=== PATIENT | male | born 1985 | race Caucasian/White ===

== ENCOUNTER → 2018-06-07 08:06 | Outpatient (CLI) | payer BC, SELFPAY ==
--- NOTE | 2018-06-07 | MR_ITS ---
MR lumbar spine wo con, MR 3-d myelogram/MRCP HISTORY: Low back pain, right leg pain X1wk back went out, RT leg pain. No trauma. LBP ITS.REASON: back pain ORDERING PHYSICIAN: Julian Soria MD PATIENT AGE: 33 years Comparison: X-RAY 05/28/18 TECHNIQUE: Standard multiplanar multiecho sequences are performed without contrast. 3-D MIP and myelographic images are also rendered and reviewed FINDINGS: Spinal cord ends at the L1 level. There is mild upper lumbar curvature convex right. L1-L2, L2-L3, and L3-L4 have an unremarkable appearance. L4-5: Normal bulging disc slightly eccentric towards the left lung with mild facet and ligamentum flavum hypertrophy. L5-S1: Mild facet hypertrophic change. No significant foraminal or lateral recess narrowing. No disc herniation or canal stenosis. IMPRESSION: Minimal bulging disc slightly eccentric towards the left at L4-L5. Mild facet and ligamentous hypertrophy at L4-5 and L5-S1. No disc herniation, canal stenosis or other significant anomalies
== END ==
PROVIDERS: Family Provider Emergency Medicine; PCP Emergency Medicine; Visit Provider Emergency Medicine
DX: M54.16 Radiculopathy, lumbar region (principal)
CPT/HCPCS: 72148; 76376

== ENCOUNTER → 2018-07-02 15:34 | Outpatient (POV) | payer BC, SELFPAY ==
[2018-07-02 15:49] VITALS: BP 148/89; PULSE 87; RESP 18; O2SAT 98
--- NOTE | 2018-07-02 16:26 | HMH.PMCON ---
Assessment and Plan (1) Bulging disc Current visit: Yes Status: Chronic Category: Medical (2) Degenerative disc disease Current visit: Yes Status: Chronic Qualifiers: Spinal region: lumbar Qualified Code(s): M51.36 - Other intervertebral disc degeneration, lumbar region Category: Medical (3) Lumbar radiculopathy Current visit: No Status: Chronic Category: Medical Code(s): M54.16 - Radiculopathy, lumbar region - Assessment and plan all Dx Assessment and Plan for all problems:: We will plan an L4-L5 lumbar epidural steroid injection for the patient. I believe that it would be beneficial for him given his symptomology. We will also start him on Celebrex 200 mg 1 p.o. daily. We will follow-up with the patient after his injection. He is not on any anticoagulation. Patient is continuing to do home stretching therapy. This note was dictated using voice recognition software and may contain errors or omissions HPI - Data of Consult Consult date: 07/02/18 Requesting Physician: Licha Reynoso APRN Primary Care Provider: Julian Soria MD Family Provider: Julian Soria MD - Consult Narrative Reason for consult: Back pain History of present illness: Mr. Yates is a 33 year old male who presents today for consultation in regards to his low back pain and right leg pain. Patient was recently moving a refrigerator when he felt pain in his back going down his leg. Patient states his pain is increased since then. He states that sitting for long periods of time makes it much worse while resting makes it better. Patient has had minimal relief with massage therapy. Patient rates his pain a 5 out of 10 today. Patient does have a recent MRI showing a disc bulge along with some facet hypertrophy. Patient has tried [id number] anti-inflammatories. CC: Licha Reynoso APRN [facility] History I have reviewed the patient's past medical history: Yes Medical History: Reports:: Asthma, Hypertension, MRSA Denies:: Cancer, Diabetes Mellitus Type 1, Diabetes Mellitus Type 2 Other Surgeries: Yes: No Previous Surgery Amputation: No Fractures: Yes (left ankle, tib/fib) - *Social History Smoking Status: Never smoker Alcohol Intake: never Alcohol Intake Frequency:: holidays/special occasions only Substance Use Type: denies use Occupational Status: employed Housing: house Household Members: spouse, children - Psychiatric History Expresses thoughts of harming self/others: None Suicide Plan Description: No Plan *Family Hx:: Heart Attack, Cancer, Hypertension, Kidney Disease Review of Systems - Review of Systems ROS General: no recent weight change, no fever, no sleep disturbances Respiratory: no cough, no shortness of air, no recurring pulmonary infections Cardiovascular/Peripheral Vascular: No chest pain, No palpitations, no edema, no shortness of breath. Gastrointestinal: no incontinence, normal bowel movements reported Genitourinary: no incontinence Musculoskeletal: Back pain, right leg pain Psychiatric: normal mood/ affect Neurological: [denies weakness in extremities], [denies balance issues] Meds Allergies Allergy/AdvReac Type Severity Reaction Status Date / Time clindamycin Allergy Mild Rash Verified 06/06/18 09:09 mupirocin [From Bactroban] Allergy Mild Rash Verified 06/06/18 08:33 morphine [MORPHINE] Allergy Unknown Verified 06/06/18 08:33 sulfamethoxazole Allergy Unknown Verified 06/06/18 08:33 [From BACTRIM] trimethoprim [From BACTRIM] Allergy Unknown Verified 06/06/18 08:33 Objective Vital signs: Pulse Resp BP Pulse Ox 87 18 148/89 98 07/02/18 15:49 07/02/18 15:49 07/02/18 15:49 07/02/18 15:49 Narrative: Physical Exam General: Alert and oriented x3, no acute distress, pleasant and cooperative, [on room air] Lungs: Resps E/U, Symmetrical chest expansion, Eyes: PERRL Musculoskeletal: Flexion and extension
--- NOTE | 2018-07-02 16:29 | P.CONS_ITS ---
Assessment and Plan (1) Bulging disc Current visit: Yes Status: Chronic Category: Medical (2) Degenerative disc disease Current visit: Yes Status: Chronic Qualifiers: Spinal region: lumbar Qualified Code(s): M51.36 - Other intervertebral disc degeneration, lumbar region Category: Medical (3) Lumbar radiculopathy Current visit: No Status: Chronic Category: Medical Code(s): M54.16 - Radiculopathy, lumbar region - Assessment and plan all Dx Assessment and Plan for all problems:: We will plan an L4-L5 lumbar epidural steroid injection for the patient. I believe that it would be beneficial for him given his symptomology. We will also start him on Celebrex 200 mg 1 p.o. daily. We will follow-up with the patient after his injection. He is not on any anticoagulation. Patient is continuing to do home stretching therapy. This note was dictated using voice recognition software and may contain errors or omissions HPI - Data of Consult Consult date: 07/02/18 Requesting Physician: Licha Reynoso APRN Primary Care Provider: Julian Soria MD Family Provider: Julian Soria MD - Consult Narrative Reason for consult: Back pain History of present illness: Mr. Yates is a 33 year old male who presents today for consultation in regards to his low back pain and right leg pain. Patient was recently moving a refrigerator when he felt pain in his back going down his leg. Patient states his pain is increased since then. He states that sitting for long periods of time makes it much worse while resting makes it better. Patient has had minimal relief with massage therapy. Patient rates his pain a 5 out of 10 today. Patient does have a recent MRI showing a disc bulge along with some facet hypertrophy. Patient has tried [id number] anti-inflammatories. CC: Licha Reynoso APRN [facility] History I have reviewed the patient's past medical history: Yes Medical History: Reports:: Asthma, Hypertension, MRSA Denies:: Cancer, Diabetes Mellitus Type 1, Diabetes Mellitus Type 2 Other Surgeries: Yes: No Previous Surgery Amputation: No Fractures: Yes (left ankle, tib/fib) - *Social History Smoking Status: Never smoker Alcohol Intake: never Alcohol Intake Frequency:: holidays/special occasions only Substance Use Type: denies use Occupational Status: employed Housing: house Household Members: spouse, children - Psychiatric History Expresses thoughts of harming self/others: None Suicide Plan Description: No Plan *Family Hx:: Heart Attack, Cancer, Hypertension, Kidney Disease Review of Systems - Review of Systems ROS General: no recent weight change, no fever, no sleep disturbances Respiratory: no cough, no shortness of air, no recurring pulmonary infections Cardiovascular/Peripheral Vascular: No chest pain, No palpitations, no edema, no shortness of breath. Gastrointestinal: no incontinence, normal bowel movements reported Genitourinary: no incontinence Musculoskeletal: Back pain, right leg pain Psychiatric: normal mood/ affect Neurological: [denies weakness in extremities], [denies balance issues] Meds Allergies Allergy/AdvReac Type Severity Reaction Status Date / Time clindamycin Allergy Mild Rash Verified 06/06/18 09:09 mupirocin [From Bactroban] Allergy Mild Rash Verified 06/06/18 08:33 morphine [MORPHINE] Allergy Unknown Verified 06/06/18 08:33 sulfamethoxazole Allerg
== END ==
PROVIDERS: Family Provider Emergency Medicine; PCP Emergency Medicine; Visit Provider Clinical Nurse Specialist Family Health
DX: M51.16 Intervertebral disc disorders with radiculopathy, lumbar region (principal)
CPT/HCPCS: 99202

== ENCOUNTER → 2019-07-15 17:25 | Outpatient (CLI) | payer BC, SELFPAY ==
--- NOTE | 2019-07-15 17:41 | XR_ITS ---
PROCEDURE: XR LUMBAR SPINE MIN 4V CLINICAL INDICATION: ACUTE RIGHT SIDED LOW BACK PAIN WITH RIGHT SIDED SCIATICA COMPARISON: SPLUMBLM XR lumbar spine 2-3V from 05/28/2018 FINDINGS: There is minimal thoracolumbar curvature convex right. There is normal alignment. No fracture or dislocation. There is mild sclerosis of the right SI joint. IMPRESSION: No acute finding with no significant change from 05/28/2018 Dictated by: Shamar Rose MD 07/15/2019 20:32 Electronically signed by Shamar Rose MD in [place] 07/15/2019 20:32
== END ==
PROVIDERS: PCP Internal Medicine Adolescent Medicine; Visit Provider Internal Medicine Adolescent Medicine
DX: M54.41 Lumbago with sciatica, right side (principal); W19.XXXD Unspecified fall, subsequent encounter
CPT/HCPCS: 72110

== ENCOUNTER → 2019-07-26 15:48 | Outpatient (CLI) | payer BC, SELFPAY ==
--- NOTE | 2019-07-26 15:51 | MR_ITS ---
PROCEDURE: MR LUMBAR SPINE WO CON CLINICAL INDICATION: ACUTE RIGHT-SIDED LOW BACK PAIN W/ RIGHT-SIDED SCIATICA COMPARISON: SPLUMBWO MR lumbar spine wo con from 06/07/2018 TECHNIQUE: Standard multiplanar multiecho sequences are performed without contrast. 3-D MIP and myelographic images are also rendered and reviewed FINDINGS: Alignment, vertebral body heights and signal from the osseous marrow elements are normal. L4-5 level shows moderate loss of disc space height. The remainder of the disc space heights are normal. L4-5 shows a mild to moderate right posterior extrusion of the nucleus pulposis which extends towards the superior L5 right lateral recess and causes moderate right ventral thecal sac deformity. The fragment is approximately 7.5 millimeters in AP diameter. This partially obscures the descending right L5 nerve root in the right lateral recess. The remainder of the disc levels are normal without bulges or herniation. Nerve root in the foraminal areas are normal. Conus is normal. Paraspinal areas are unremarkable. There is mild curvature, convex towards the right in the upper lower lumbar area. Posterior elements are intact. IMPRESSION: L4-5 right-sided disc herniation of the extrusion type as described causing right lateral recess. Upper lumbar mild dextroscoliosis. Dictated by: Arie Bronson 07/26/2019 17:04 Electronically signed by Arie Bronson in [place] 07/26/2019 17:04
== END ==
LOC: RAD 15:48
PROVIDERS: PCP Internal Medicine Adolescent Medicine; Visit Provider Internal Medicine Adolescent Medicine
DX: M54.41 Lumbago with sciatica, right side (principal)
CPT/HCPCS: 72148; 76376

== ENCOUNTER → 2019-11-06 16:17 | Outpatient (CLI) | payer BC, SELFPAY | PROVIDERS: Visit Provider Internal Medicine Adolescent Medicine | DX: J20.9 Acute bronchitis, unspecified (principal) | CPT/HCPCS: 87070; 87205 ==

== ENCOUNTER → 2020-05-22 12:22 | Outpatient (CLI) | payer BC, OTHER, SELFPAY ==
[2020-05-22 13:20] LABS: Basophils % 0.6 % (0.1-2.0); Eosinophils # 0.1 K/mm3 (0.0-0.4); Eosinophils % 1.3 % (0.1-12.0); Hematocrit 45.2 % (42.0-52.0); Hemoglobin 15.3 g/dL (14.1-18.0); Lymphocytes # 1.5 K/mm3 (0.7-4.5); Lymphocytes % 25.6 % (10-50); Mean Corpuscular Hemoglobin 29.3 pg (27.0-31.2); Mean Corpuscular Volume 86.4 fl (80-94); Mean Platelet Volume 9.3 fl (7.4-10.4); Monocytes # 0.4 K/mm3 (0.1-1.0); Monocytes % 6.1 % (1.7-9.3); Neutrophils # 3.9 K/mm3 (1.8-7.8); Neutrophils % 66.2 % (37.0-80.0); Platelet Count 203 K/mm3 (142-424); Red Blood Count 5.23 M/mm3 (4.60-6.20); Red Cell Distribution Width 12.9 % (11.5-17.5); White Blood Count 5.9 K/mm3 (4.8-10.8)
[2020-05-22 13:50] LABS: Chloride 101 mmol/L (98-107); Potassium 4.6 mmoL/L (3.5-5.1); Sodium 140 mmol/L (136-145)
[2020-05-22 13:52] LABS: Blood Urea Nitrogen 19 mg/dl (9-20)
[2020-05-22 13:53] LABS: Alanine Aminotransferase 40 U/L (12-78); Albumin Level 4.9 g/dl (3.5-5.0); Albumin/Globulin Ratio 1.8 (1.1-1.8); Alkaline Phosphatase 40 U/L (38-126); Anion Gap 16.6 mEq/L (5-15); Aspartate Amino Transferase 32 U/L (17-59); Carbon Dioxide 27 mmol/L (22.0-30.0); Cholesterol 206 mg/dl (140-200); Estimated Glomerular Filt Rate 85 ml/min (>60); GFR (African American) 103 ML/MIN (>60); Globulin 2.8 g/dL (1.3-3.2); Glucose 81 mg/dl (74-100); Total Protein,Serum 7.7 g/dl (6.3-8.2); Triglycerides 88 mg/dl (30-150); VLDL Cholesterol 18 mg/dL (0-40)
[2020-05-22 13:54] LABS: Chol/HDL Ratio 4.2 (1-3.5); HDL Cholesterol 49 mg/dl (40-60)
[2020-05-22 14:05] LABS: Direct LDL Cholesterol 131.49 mg/dL (100-129)
[2020-05-22 14:24] LABS: Thyroid Stimulating Hormone 2.38 uIU/mL (0.465-4.68)
[2020-05-22 18:08] LABS: Bilirubin,Total 0.7 mg/dl (0.2-1.3)
[2020-05-23 19:24] LABS: Vitamin B12 546 pg/mL (232-1245)
== END ==
PROVIDERS: Visit Provider Nurse Practitioner Family
DX: Z00.00 Encounter for general adult medical examination without abnormal findings (principal); I10 Essential (primary) hypertension; R53.83 Other fatigue; Z68.33 Body mass index [BMI] 33.0-33.9, adult
CPT/HCPCS: 36415; 80053; 80061; 82306; 82607; 84443; 85025

== ENCOUNTER → 2020-07-06 14:15 | Outpatient (CLI) | payer BC, OTHER, SELFPAY | PROVIDERS: PCP Nurse Practitioner Family; Visit Provider Nurse Practitioner Family | DX: G47.00 Insomnia, unspecified (principal) | CPT/HCPCS: G0399 ==

== ENCOUNTER 2021-02-07 09:48 | Emergency (ER) | payer BC, OTHER, SELFPAY ==
[2021-02-07 09:50] VITALS: BP 136/87; PULSE 82; RESP 20; TEMP 36.8; O2SAT 98; BMI 34.4
--- NOTE | 2021-02-07 10:11 | HMH.EDUTC ---
[facility] Disposition Clinical Impression: Bronchitis Sinusitis Qualifiers: Sinusitis location: unspecified location Chronicity: unspecified Qualified Code(s): J32.9 - Chronic sinusitis, unspecified Disposition: Home, Self-Care Condition on Discharge: Good Instructions: Sinusitis, DI for Sinusitis, DI for Acute Bronchitis Additional Instructions: ? Start antibiotic today. Be sure to complete entire prescription even if feeling better ? Monitor temp. Tylenol every 4 hours as needed and / or ibuprofen every 6 hours as needed ( As long as your primary care physician has told you that it ok to take both. For fever/aches/pains ER if no less than 101 despite Tylenol or Motrin ? Humidifier/vaporizer or hot steamy shower ? Inhaler every 4-6 hours as needed like we discussed. If unsure how to use it, ask pharmacist to demonstrate how. Should help open airways and improve cough, wheezing, and shortness of breath ? Mucinex during the day for your cough and cough suppressant only at night. Be sure to drink lots of water. Insurance may not cover a prescriptions for mucinex. Might be cheaper to get 400mg tablets and take 2 tablet in the morning, mid-day and evening with lots of water. if you can take it *Start steroid today. Helps with inflammation therefore, cough and wheezing. Follow directions on the package. Reviewed side effects. Patient reports taking them before. Follow up IMMEDIATELY for new or worsening of symptoms OR no noticeable improvement over the next 48-72 hours. 911 immediately for any life threatening symptoms such as chest pain or difficulty breathing Prescriptions: Albuterol Sulfate [Proventil-HFA 90mcg/puff Inh] 1 - 2 puffs IH Q4HP PRN #1 inh PRN Reason: Shortness Of Breath Transmission Status: Received by [id number] predniSONE [Prednisone 20mg Tab] 20 mg PO BID #10 tab Transmission Status: Received by [facility] Azithromycin [Z-Jarod 250mg Tab] 250 mg PO DIRECTED #6 tab Transmission Status: Received by [id number] Referrals: David Edgar MD [Primary Care Provider] - Time of Disposition: 10:23 Medical Decision Making - Ed Inquiry Pt receiving controlled substance: No Ed was queried for this patient: No Vital Signs: 02/07/21 09:50 02/07/21 10:31 Temperature 98.3 F 98.3 F Temperature Source Oral Pulse Rate 82 Pulse Rate [Right Brachial] 82 Respiratory Rate 20 20 Blood Pressure 136/87 Blood Pressure [Right Arm] 136/87 Blood Pressure Mean [Right Arm] 103 Blood Pressure Source [Right Arm] Automatic Cuff Blood Pressure Position [Right Arm] Sitting 02 Sat by Pulse Oximetry 98 Oxygen Delivery Method Room Air Medical Decision Narrative: Patient state that he has taken azithromycin and prednisone in the past without complications or reactions [facility] HPI - General Stated complaint: chest cold, sore throat Time Seen by Provider: 02/07/21 10:11 Mode of Arrival: Ambulatory Source of Information: Patient Limitations: No Limitations Description of Symptoms (Recalled from Triage Doc. by RN): PATIENT C/O CONGESTION, SOA, AND PRODUCTIVE COUGH SINCE MONDAY HEENT Symptoms (Recalled from RN notes): No Resp Symptoms (Recalled from RN notes): Yes Skin Symptoms (Recalled from RN notes): No MS Symptoms (Recalled from RN notes): No Functional Status (Recalled from RN notes): WNL - History of Present Illness Provider Complaint: Patient states that he has been having sinus pressure and sinus congestion for well over a week State that he now feels like it is trying to move into his chest and he can feel it draining in the back of his throat and his throat is feeling scratchy States that at times he is able to cough it up - Related Data Home Medications Medication Instructions Recorded Confirmed Escitalopram Oxalate [Lexapro] 20 mg PO DAILY 02/07/21 02/07/21 Omeprazole [Omeprazole 40mg 40 mg PO DAILY 02/07/21 02/07/21 Capsule] Previous Rx's
[2021-02-07 10:31] VITALS: BP 136/87; PULSE 82; RESP 20; TEMP 36.8; O2SAT 98
== END 2021-02-07 11:00 | disposition home or self-care (01) ==
PROVIDERS: Emergency Provider Nurse Practitioner; PCP Internal Medicine Adolescent Medicine
DX: J20.9 Acute bronchitis, unspecified (principal); J32.9 Chronic sinusitis, unspecified; I10 Essential (primary) hypertension; Z79.899 Other long term (current) drug therapy; Z88.1 Allergy status to other antibiotic agents; Z88.2 Allergy status to sulfonamides; Z88.5 Allergy status to narcotic agent
CPT/HCPCS: 96372; 99202; G0463

== ENCOUNTER 2021-07-16 19:19 | Emergency (ER) | payer OTHER, SELFPAY ==
[2021-07-16 19:20] VITALS: BP 138/99; PULSE 89; RESP 18; TEMP 36.9; O2SAT 97; BMI 34.4
--- NOTE | 2021-07-16 19:40 | XR_ITS ---
PROCEDURE INFORMATION: Exam: XR Left Hand Exam date and time: 07/16/2021 7:40 PM Age: 36 years old Clinical indication: Injury or trauma; Other: Fernandes hog blade fell on top of left hand; Laceration; Patient HX: Bushhog blade fell on hand TECHNIQUE: Imaging protocol: XR Left hand. Views: 3 or more views. COMPARISON: No relevant prior studies available. FINDINGS: Bones/joints: No fracture. No malalignment. Soft tissues: Normal. IMPRESSION: No acute findings.
--- NOTE | 2021-07-16 20:11 | XR_ITS ---
PROCEDURE INFORMATION: Exam: XR Left Wrist Exam date and time: 07/16/2021 8:11 PM Age: 36 years old Clinical indication: Pain and injury or trauma; Other: Fernandes hog blade fell on hand/wrist left; Blunt trauma (contusions or hematomas) and laceration TECHNIQUE: Imaging protocol: XR Left wrist. Views: 3 or more views. COMPARISON: CR XR HAND LT MIN 3V 07/16/2021 7:44 PM FINDINGS: Bones/joints: No fracture. No malalignment. Soft tissues: Normal. IMPRESSION: No acute findings. If there is high or persistent clinical concern, CT is offered.
--- NOTE | 2021-07-16 20:11 | HMH.EDUTC ---
[facility] [place] Disposition Clinical Impression: Crushing injury of right hand Qualifiers: Encounter type: initial encounter Qualified Code(s): S67.21XA - Crushing injury of right hand, initial encounter Disposition: Home, Self-Care Condition on Discharge: Good Instructions: DI for Crush Injury Additional Instructions: Rest the extremity, apply ice for 15 minutes as tolerated three or four times per day, Wear the codi wrap for compression, Elevate the extremity as tolerated while you are resting. Take ibuprofen for pain. I sent in a prescription to your pharmacy. Follow up with Dr. Mast (orthopedics). I put in a referral but you need to call his office and schedule an appointment. Follow up with your regular doctor. GO TO THE ER FOR ANY WORSENING SYMPTOMS Prescriptions: Ibuprofen [Ibuprofen 800mg Tablet] 800 mg PO Q8HP PRN #30 tab PRN Reason: Moderate Pain Transmission Status: Received by [id number] Referrals: David Edgar MD [Primary Care Provider] - Mono Mast MD [Staff Physician] - Time of Disposition: 21:03 Medical Decision Making - Medical Records Medical records reviewed: No: I reviewed the patient's medical records. - Ed Inquiry Pt receiving controlled substance: No Vital Signs: 07/16/21 19:20 07/16/21 21:06 Temperature 98.4 F 98.4 F Temperature Source Oral Pulse Rate 89 Pulse Rate [Right Brachial] 89 Respiratory Rate 18 18 Blood Pressure 138/99 H Blood Pressure [Right Arm] 138/99 H Blood Pressure Mean [Right Arm] 112 Blood Pressure Source [Right Arm] Automatic Cuff Blood Pressure Position [Right Arm] Sitting 02 Sat by Pulse Oximetry 97 Oxygen Delivery Method Room Air [facility] [place] HPI - General Stated complaint: AO 07/19@1845 Blade on Fernandes Hog fell on Left Wrist Time Seen by Provider: 07/16/21 21:02 Mode of Arrival: Ambulatory Source of Information: Patient Limitations: No Limitations Description of Symptoms (Recalled from Triage Doc. 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 SWELLING NOTED TO LEFT HAND HEENT Symptoms (Recalled from RN notes): No Resp Symptoms (Recalled from RN notes): No Skin Symptoms (Recalled from RN notes): No MS Symptoms (Recalled from RN notes): Yes Functional Status (Recalled from RN notes): WNL - History of Present Illness Provider Complaint: He was working on a fernandes hog earlier when it fell on is right wrist and hand. he has had right wrist and hand pain since then. - Related Data Home Medications Medication Instructions Recorded Confirmed Escitalopram Oxalate [Lexapro] 20 mg PO DAILY 02/07/21 02/07/21 Omeprazole [Omeprazole 40mg 40 mg PO DAILY 02/07/21 02/07/21 Capsule] Previous Rx's Medication Instructions Recorded Albuterol Sulfate [Proventil-HFA 1 - 2 puffs IH Q4HP PRN #1 inh 02/07/21 90mcg/puff Inh] Azithromycin [Z-Jarod 250mg Tab] 250 mg PO DIRECTED #6 tab 02/07/21 predniSONE [Prednisone 20mg 20 mg PO BID #10 tab 02/07/21 Tab] Ibuprofen [Ibuprofen 800mg 800 mg PO Q8HP PRN #30 tab 07/16/21 Tablet] Allergies Allergy/AdvReac Type Severity Reaction Status Date / Time clindamycin Allergy Mild Rash Verified 01/11/19 14:20 mupirocin [From Bactroban] Allergy Mild Rash Verified 01/11/19 14:20 morphine [MORPHINE] Allergy Unknown Verified 01/11/19 14:20 sulfamethoxazole Allergy Unknown Verified 01/11/19 14:20 [From BACTRIM] trimethoprim [From BACTRIM] Allergy Unknown Verified 01/11/19 14:20 - Worker's Comp Is this a Worker's Comp case?: No [facility] History - Hepatitis A Screen Drug use history?: No High risk sexual behaviors?: No History of sexually transmitted infection?: No Currently employed?: No Childcare worker?: No Do you have indoor plumbing?: Yes Do you have electricity?: Yes Attestation statement:: This patient has been screened for Hepatitis A risk factors. I have reviewed the patient's past medical history: Yes
[2021-07-16 21:06] VITALS: BP 138/99; PULSE 89; RESP 18; TEMP 36.9; O2SAT 97
== END 2021-07-16 21:11 | disposition home or self-care (01) ==
PROVIDERS: Emergency Provider Nurse Practitioner Family; PCP Internal Medicine Adolescent Medicine
DX: S67.21XA Crushing injury of right hand, initial encounter (principal); W30.89XA Contact with other specified agricultural machinery, initial encounter; Y92.73 Farm field as the place of occurrence of the external cause; I10 Essential (primary) hypertension; Z88.2 Allergy status to sulfonamides; Z88.5 Allergy status to narcotic agent
CPT/HCPCS: 29125; 73110; 73130; 99202; G0463

== ENCOUNTER → 2021-09-02 09:09 | Outpatient (CLI) | payer OTHER, SELFPAY ==
[2021-09-02 09:48] LABS: Basophils # 0.1 K/mm3 (0-0.2); Basophils % 0.9 % (0.1-2.0); Eosinophils # 0.1 K/mm3 (0.0-0.4); Eosinophils % 2.2 % (0.1-12.0); Hematocrit 41.1 % (42.0-52.0); Hemoglobin 13.6 g/dL (14.1-18.0); Lymphocytes # 1.5 K/mm3 (0.7-4.5); Lymphocytes % 28.7 % (10-50); Mean Corpuscular HGB Conc 33.1 g/dL (31.8-35.4); Mean Corpuscular Hemoglobin 29.4 pg (27.0-31.2); Mean Corpuscular Volume 88.8 fl (80-94); Mean Platelet Volume 9.6 fl (7.4-10.4); Monocytes # 0.3 K/mm3 (0.1-1.0); Monocytes % 5.7 % (1.7-9.3); Neutrophils # 3.3 K/mm3 (1.8-7.8); Neutrophils % 62.5 % (37.0-80.0); Platelet Count 206 K/mm3 (142-424); Red Blood Count 4.63 M/mm3 (4.60-6.20); Red Cell Distribution Width 14.1 % (11.5-17.5); White Blood Count 5.2 K/mm3 (4.8-10.8)
[2021-09-02 10:37] LABS: Alanine Aminotransferase 48 U/L (12-78); Albumin Level 4.2 g/dl (3.5-5.0); Albumin/Globulin Ratio 1.6 (1.1-1.8); Alkaline Phosphatase 45 U/L (38-126); Anion Gap 11.3 mEq/L (5-15); Aspartate Amino Transferase 36 U/L (17-59); Bilirubin,Total 0.6 mg/dl (0.2-1.3); Blood Urea Nitrogen 14 mg/dl (9-20); Calcium 9.1 mg/dl (8.4-10.2); Carbon Dioxide 28 mmol/L (22.0-30.0); Chloride 106 mmol/L (98-107); Chol/HDL Ratio 4.9 (1-3.5); Cholesterol 190 mg/dl (140-200); Estimated Glomerular Filt Rate 95 ml/min (>60); GFR (African American) 116 ML/MIN (>60); Globulin 2.6 g/dL (1.3-3.2); Glucose 87 mg/dl (74-100); HDL Cholesterol 39 mg/dl (40-60); Potassium 4.3 mmoL/L (3.5-5.1); Sodium 141 mmol/L (136-145); Total Protein,Serum 6.8 g/dl (6.3-8.2); Triglycerides 99 mg/dl (30-150); VLDL Cholesterol 20 mg/dL (0-40)
[2021-09-02 10:48] LABS: Direct LDL Cholesterol 124.96 mg/dL (100-129)
[2021-09-02 11:08] LABS: Thyroid Stimulating Hormone 2.57 uIU/mL (0.465-4.68)
[2021-09-02 11:26] LABS: Vitamin B12 489 pg/mL (239-931)
[2021-09-02 12:27] LABS: Hemoglobin A1C 5.1 % (4.0-6.0)
== END ==
PROVIDERS: Visit Provider Internal Medicine Adolescent Medicine
DX: Z00.00 Encounter for general adult medical examination without abnormal findings (principal); M79.2 Neuralgia and neuritis, unspecified; I10 Essential (primary) hypertension
CPT/HCPCS: 36415; 80053; 80061; 82607; 83036; 83735; 84443; 85025

== ENCOUNTER → 2021-09-30 09:52 | Outpatient (CLI) | payer OTHER, SELFPAY ==
--- NOTE | 2021-09-30 09:55 | FL_ITS ---
PROCEDURE: FL UPPER GI W AIR CLINICAL INDICATION: ESOPHAGEAL DYSPHAGIA COMPARISON: No exams were available for comparison TECHNIQUE: FLUOROSCOPY TIME : 1.07 minutes FINDINGS: The esophagus, stomach, and duodenum have an unremarkable appearance.There is no evidence of hiatal hernia. No ulcer or mass evident. No mucosal abnormalities apparent. There is normal peristalsis. The duodenal C-loop is nondisplaced. IMPRESSION: Dictated by: Shamar Rose MD 09/30/2021 16:47 Shamar Rose MD in [place] 09/30/2021 16:47
== END ==
PROVIDERS: PCP Internal Medicine Adolescent Medicine; Visit Provider Internal Medicine Adolescent Medicine
DX: R13.19 Other dysphagia (principal)
CPT/HCPCS: 74246

== ENCOUNTER 2022-01-09 23:06 | Emergency (ER) | payer OTHER, SELFPAY ==
[2022-01-09 23:07] VITALS: BP 154/90; PULSE 97; RESP 22; TEMP 36.8; O2SAT 98; BMI 34.4
[2022-01-09 23:13] VITALS: BMI 34.4
--- NOTE | 2022-01-09 23:14 | XR_ITS ---
PROCEDURE INFORMATION: Exam: XR Chest Exam date and time: 01/09/2022 11:23 PM Age: 36 years old Clinical indication: Cough and shortness of breath; Additional info: SOA cough TECHNIQUE: Imaging protocol: XR of the chest. Views: 2 views. COMPARISON: RF FL UPPER GI W AIR 09/30/2021 10:01 AM FINDINGS: Lungs: Mild underinflation. No definite consolidation. Pleural spaces: No significant pleural effusion. No pneumothorax. Heart/Mediastinum: No cardiomegaly. Bones/joints: No displaced fracture. Soft tissues: Unremarkable. IMPRESSION: No definite acute cardiopulmonary disease. If symptoms persist, consider CT for further evaluation.
--- NOTE | 2022-01-09 23:16 | ECG_ITS ---
APPROVED REPORT Exam: Resting ECG HR:82 bpm ECG Measurements Heart Rate 82 AXES LA 134 P 32 QRSd 106 QRS 18 QT 344 T 12 QTc 382 Conclusion SINUS RHYTHM NORMAL ECG UNCONFIRMED REPORT Electronically signed by : David Edgar MD 01/11/2022 16:46:49
[2022-01-09 23:30] VITALS: PULSE 84
[2022-01-09 23:40] VITALS: PULSE 82
[2022-01-09 23:46] LABS: Basophils # 0.2 K/mm3 (0-0.2); Basophils % 1.9 % (0.1-2.0); Eosinophils # 0.2 K/mm3 (0.0-0.4); Eosinophils % 2.6 % (0.1-12.0); Hematocrit 44.4 % (42.0-52.0); Hemoglobin 14.4 g/dL (14.1-18.0); Lymphocytes # 2.4 K/mm3 (0.7-4.5); Lymphocytes % 31.1 % (10-50); Mean Corpuscular HGB Conc 32.5 g/dL (31.8-35.4); Mean Corpuscular Hemoglobin 28.9 pg (27.0-31.2); Mean Corpuscular Volume 88.8 fl (80-94); Mean Platelet Volume 9.5 fl (7.4-10.4); Monocytes # 0.5 K/mm3 (0.1-1.0); Monocytes % 5.8 % (1.7-9.3); Neutrophils # 4.5 K/mm3 (1.8-7.8); Neutrophils % 58.5 % (37.0-80.0); Platelet Count 227 K/mm3 (142-424); Red Cell Distribution Width 13.8 % (11.5-17.5); White Blood Count 7.7 K/mm3 (4.8-10.8)
[2022-01-09 23:49] VITALS: PULSE 83; O2SAT 98
[2022-01-09 23:50] LABS: Alanine Aminotransferase 50 U/L (12-78); Albumin Level 4.7 g/dl (3.5-5.0); Albumin/Globulin Ratio 1.5 (1.1-1.8); Alkaline Phosphatase 56 U/L (38-126); Aspartate Amino Transferase 38 U/L (17-59); Bilirubin,Total 0.4 mg/dl (0.2-1.3); Blood Urea Nitrogen 14 mg/dl (9-20); Calcium 9.3 mg/dl (8.4-10.2); Carbon Dioxide 28 mmol/L (22.0-30.0); Chloride 107 mmol/L (98-107); Creatinine Clearance Estimated 143 mL/min (50-200); Estimated Glomerular Filt Rate 76 ml/min (>60); GFR (African American) 92 ML/MIN (>60); Globulin 3.1 g/dL (1.3-3.2); Glucose 90 mg/dl (74-100); Lactic Acid 1.8 mmol/L (0.7-2.1); Sodium 145 mmol/L (136-145); Total Protein,Serum 7.8 g/dl (6.3-8.2)
[2022-01-09 23:55] LABS: C-Reactive Protein 1.9 mg/L (0-4)
[2022-01-10] VITALS: BP 155/89; PULSE 84; O2SAT 97
[2022-01-10 00:01] VITALS: PULSE 81; O2SAT 96
[2022-01-10 00:08] LABS: Procalcitonin 0.101 ng/mL (0.0-2.0)
[2022-01-10 00:10] LABS: Erythrocyte Sedimentation Rate 15 mm/hr (0-15)
[2022-01-10 00:15] VITALS: PULSE 80; O2SAT 98
--- NOTE | 2022-01-10 00:35 | HMH.EDSOB ---
ED Disposition Clinical Impression: Bronchitis Disposition: Home, Self-Care Condition on Discharge: Good Instructions: DI for Acute Bronchitis Additional Instructions: fluids and use meds as directed Prescriptions: Benzonatate [Benzonatate 100mg cap] 100 mg PO QID #20 cap Transmission Status: Pending to [facility] predniSONE [Prednisone 20mg Tab] 20 mg PO BID #10 tab Transmission Status: Pending to [facility] Azithromycin [Zithromax 250mg tab] 250 mg PO DIRECTED #6 tab Transmission Status: Pending to [facility] Referrals: David Edgar MD [Primary Care Provider] - - Critical Care Critical Care Time: No Attestation: On 01/09/22, the high probability of a clinically significant, sudden or life threatening deterioration of the following system(s) required my full and direct attention, intervention and personal management. The time I documented below is in addition to time spent performing reported procedures but includes the following listed in this critical care notation. Medical Decision Making - Medical Records Medical records reviewed: Yes: I reviewed the patient's medical records. - Ed Inquiry Pt receiving controlled substance: No Vital Signs: 01/09/22 23:07 01/09/22 23:30 01/09/22 23:40 Temperature 98.3 F Temperature Source Oral Pulse Rate 84 82 Pulse Rate [Right] 97 H Respiratory Rate 22 Blood Pressure Blood Pressure [Right Arm] 154/90 H Blood Pressure Mean [Right Arm] 111 02 Sat by Pulse Oximetry 98 01/09/22 23:49 01/10/22 00:00 01/10/22 00:01 Temperature Temperature Source Pulse Rate 83 84 81 Pulse Rate [Right] Respiratory Rate Blood Pressure 155/89 H Blood Pressure [Right Arm] Blood Pressure Mean [Right Arm] 02 Sat by Pulse Oximetry 98 97 96 01/10/22 00:15 Temperature Temperature Source Pulse Rate 80 Pulse Rate [Right] Respiratory Rate Blood Pressure Blood Pressure [Right Arm] Blood Pressure Mean [Right Arm] 02 Sat by Pulse Oximetry 98 - Lab Data Lab results reviewed: Yes: I reviewed the patient's lab results. Lab Results 01/09/22 23:30: WBC 7.7, RBC 5.00, Hgb 14.4, Hct 44.4, MCV 88.8, MCH 28.9, MCHC 32.5, RDW 13.8, Plt Count 227, MPV 9.5, Neut % (Auto) 58.5, Lymph % (Auto) 31.1, [place] % (Auto) 5.8, Eos % (Auto) 2.6, Baso % (Auto) 1.9, Neut # (Auto) 4.5, Lymph # (Auto) 2.4, [place] # (Auto) 0.5, Eos # (Auto) 0.2, Baso # (Auto) 0.2, ESR 15 01/09/22 23:30: Sodium 145, Potassium 4.0, Chloride 107, Carbon Dioxide 28, Anion Gap 14.0, BUN 14, Creatinine 1.10, Estimated Creat Clear 143, Estimated GFR 76, Est GFR ( Amer) 92, Glucose 90, Calcium 9.3, Total Bilirubin 0.4, AST 38, ALT 50, Alkaline Phosphatase 56, C-Reactive Protein 1.9, Total Protein 7.8, Albumin 4.7, Globulin 3.1, Albumin/Globulin Ratio 1.5, Procalcitonin 0.101 01/09/22 23:30: Lactate 1.8 Result diagrams: 01/09/22 23:30 01/09/22 23:30 Orders (Tests/Meds): ED MEDICATIONS Generic Name Dose Route Start Last Admin Trade Name Freq PRN Reason Stop Dose Admin Benzonatate 200 mg 01/10/22 01:15 01/10/22 01:16 Benzonatate 100mg Capsule PO 02/09/22 01:14 200 mg ONCE NEHA Administration Lactated Ringer's 1,000 mls @ 999 mls/hr 01/09/22 23:15 01/09/22 23:29 Lactated Ringer's 1000 Ml Bag IV 01/10/22 00:15 999 mls/hr .Q1H1M NEHA Administration Azithromycin 500 mg/ Sodium 250 mls @ 250 mls/hr 01/10/22 01:15 01/10/22 01:16 Chloride IV 01/24/22 01:14 250 mls/hr Q24H NEHA Administration Discontinued Medications Generic Name Dose Route Start Last Admin Trade Name Freq PRN Reason Stop Dose Admin Albuterol/Ipratropium 3 ml 01/09/22 23:15 01/09/22 23:30 Ipratropium/Albuterol 3 Ml Neb IH 01/09/22 23:16 3 ml ONCE ONE Administration Diphenhydramine HCl 50 mg 01/09/22 23:36 01/09/22 23:38 Diphenhydramine 50mg/Ml Vial IV 01/09/22 23:37 50 mg ONCE ONE Administration
[2022-01-10 01:41] VITALS: BP 145/80; PULSE 88; RESP 19; TEMP 36.8; O2SAT 99
== END 2022-01-10 02:00 | disposition home or self-care (01) ==
PROVIDERS: Emergency Provider Emergency Medicine; PCP Internal Medicine Adolescent Medicine
DX: J40 Bronchitis, not specified as acute or chronic (principal); R55 Syncope and collapse; R51.9 Headache, unspecified; I10 Essential (primary) hypertension; Z79.52 Long term (current) use of systemic steroids; Z79.899 Other long term (current) drug therapy; Z88.1 Allergy status to other antibiotic agents; Z88.2 Allergy status to sulfonamides; Z88.3 Allergy status to other anti-infective agents; Z88.5 Allergy status to narcotic agent; Z88.8 Allergy status to other drugs, medicaments and biological substances; Z82.49 Family history of ischemic heart disease and other diseases of the circulatory system; Z80.9 Family history of malignant neoplasm, unspecified; Z84.1 Family history of disorders of kidney and ureter
CPT/HCPCS: 71046; 80053; 83605; 84145; 85025; 85651; 86140; 87040; 93005; 96365; 96367; 96374; 96375; 99285; J0456; J2405

== ENCOUNTER → 2022-08-08 13:46 | Outpatient (CLI) | payer OTHER, SELFPAY ==
--- NOTE | 2022-08-08 13:51 | XR_ITS ---
FINAL REPORT CLINICAL HISTORY: heel pain FINDINGS: LEFT FOOT Three views of the left foot demonstrate no acute fracture or dislocation. The visualized joint spaces are normally aligned. The joint spaces are preserved. There is a plantar calcaneal spur and a posterior calcaneal spur. There are postoperative changes in the medial malleolus and the distal fibula. The soft tissues are unremarkable. IMPRESSION: Calcaneal spurs with no acute bony abnormality. Reviewed, Interpreted and Dictated by Matty Alonso III, MD Transcribed by Lucy Sesay Authenticated and [facility]
--- NOTE | 2022-08-08 13:51 | XR_ITS ---
FINAL REPORT CLINICAL HISTORY: heel pain FINDINGS: RIGHT FOOT Three views of the right foot demonstrate no acute fracture or dislocation. The visualized joint spaces are normally aligned. The joint spaces are preserved. There is a plantar calcaneal spur. The soft tissues are unremarkable. IMPRESSION: Calcaneal spur with no acute bony abnormality. Reviewed, Interpreted and Dictated by Matty Alonso III, MD Transcribed by Lucy Sesay Authenticated and [facility]
== END ==
PROVIDERS: PCP Internal Medicine Adolescent Medicine; Visit Provider Podiatrist
DX: M79.671 Pain in right foot (principal); M79.672 Pain in left foot
CPT/HCPCS: 73630

== ENCOUNTER → 2022-12-08 09:29 | Outpatient (CLI) | payer OTHER, SELFPAY ==
--- NOTE | 2022-12-08 09:32 | XR_ITS ---
FINAL REPORT CLINICAL HISTORY: foot pain COMPARISON: 08/08/2022 FINDINGS: AP, oblique and lateral views of the right foot were obtained. There is no acute fracture or dislocation. The joint spaces are preserved. Soft tissues are normal. IMPRESSION: No acute osseous abnormality of the right foot. Reviewed, Interpreted and Dictated by Etelvina Ivey MD Transcribed by Lucy eSsay Authenticated and . [facility]
--- NOTE | 2022-12-08 09:32 | XR_ITS ---
FINAL REPORT CLINICAL HISTORY: heel pain/injury FINDINGS: Axial and lateral views of the right calcaneus were obtained. There is no prior exam for comparison. There is no acute fracture or other acute osseous abnormality. There is degenerative disease. The soft tissues are unremarkable. IMPRESSION: No acute osseous abnormality of the right calcaneus. Reviewed, Interpreted and Dictated by Etelvina Ivey MD Transcribed by Lucy Sesay Authenticated and [facility]
== END ==
PROVIDERS: PCP Internal Medicine Adolescent Medicine; Visit Provider Podiatrist
DX: M79.671 Pain in right foot (principal)
CPT/HCPCS: 73630; 73650

== ENCOUNTER 2023-06-19 20:45 | Emergency (ER) | payer OTHER, SELFPAY ==
[2023-06-19] VITALS (7 sets, daily range): BP systolic 123–152; BP diastolic 75–106; PULSE 63–82; RESP 16–20; TEMP 36.6; O2SAT 97–99; BMI 34.4
--- NOTE | 2023-06-19 21:25 | HMH.EDGENADL ---
Discharge Plan Disposition Patient Disposition: Home, Self-Care Condition: Good Prescriptions Prescriptions: New ondansetron HCl 4 mg tablet 4 mg PO Q8H PRN (Reason: nausea and vomiting) 5 Days Qty: 30 0RF tamsulosin 0.4 mg capsule 0.4 mg PO DAILY Qty: 14 0RF No Action venlafaxine 75 mg capsule,extended release 24hr 75 mg PO DAILY carvedilol 12.5 mg tablet 12.5 mg PO Q12H Rx Instructions: must administer with a meal/food meloxicam 15 mg tablet 15 mg PO ONCE 30 Days Qty: 30 2RF omeprazole 40 MG capsule,delayed release(DR/EC) 40 mg PO DAILY losartan 100 MG tablet 100 mg PO DAILY Referrals Follow up/Referrals: David Edgar MD [Primary Care Provider] - See instructions Activity Restrictions/Add. Instructions Additional Instructions/Restrictions: Please follow-up with your primary care provider. Please return to the emergency department if you develop any new or worsening symptoms or become concerned for your health. Please take Tylenol and ibuprofen as needed for pain. Please take Zofran as needed for nausea and vomiting. Please take tamsulosin as it may help your kidney stone pass. Please remain hydrated. Your CT scan showed some fatty liver and an enlarged prostate, this should be followed up by your primary care provider. Clinical Impressions Clinical Impression: Hydronephrosis concurrent with and due to calculi of kidney and ureter, Abdominal pain, RLQ, Fatty infiltration of liver, Acute dehydration Diarrhea Qualifiers: Diarrhea type: presumed infectious Qualified Code(s): R19.7 - Diarrhea, unspecified Instructions Patient Instructions: DI for Acute Abdominal Pain Discharge ED Provider: Hi Schwartz General Adult HPI <Hi Schwartz MD - Last Filed: 06/19/23 23:06> General Chief complaint: Abdominal Pain Stated complaint: R lower abd pain Time Seen by Provider: 06/19/23 20:50 Mode of Arrival: Ambulatory Source of Information: Patient Limitations: No Limitations Description of Symptoms (Recalled from ER Triage Doc. by RN): Patient reports he has been feeling bad all day but about an hour ago he started having right lower quadrant pain. Patient states he is unsire if he has ran a fever but reports chills and nausea but no vomiting at this time. History of Present Illness HPI narrative: This is a 38-year-old male with history of hypertension presenting with abdominal pain. Patient states that he has been having diarrhea all day which is nonbloody and bright green. Has not been vomiting or having fevers. Started having right lower quadrant abdominal pain about an hour prior to arrival that starts on his right side and radiates down to his right lower quadrant. No dysuria or hematuria. Denies back pain, flank pain, history of this in the past. Pain is moderate to severe in intensity, unable to get comfortable. Related Data Home Medications Medication Instructions Recorded Confirmed omeprazole 40 mg capsule,delayed 40 mg PO DAILY GERD 02/07/21 06/19/23 release losartan 100 mg tablet 100 mg PO DAILY High blood pressure 01/10/22 01/24/23 carvedilol 12.5 mg tablet 12.5 mg PO Q12H 10/03/22 01/24/23 venlafaxine 75 mg capsule,extended 75 mg PO DAILY 10/03/22 01/24/23 release 24 hr Previous Rx's Medication Instructions Recorded meloxicam 15 mg tablet 15 mg PO ONCE pain 30 days #30 tabs 12/06/22 ondansetron HCl 4 mg tablet 4 mg PO Q8H PRN nausea and 06/19/23 vomiting 5 days #30 tabs tamsulosin 0.4 mg capsule 0.4 mg PO DAILY #14 caps 06/19/23 Allergies Allergy/AdvReac Type Severity Reaction Status Date / Time clindamycin Allergy Mild Rash Verified 01/24/23 15:22 mupirocin [From Bactroban] Allergy Mild Rash Verified 01/24/23 15:22 morphine [MORPHINE] Allergy Unknown Verified 01/24/23 15:22 sulfamethoxazole Allergy Unknown Verified 01/24/23 15:22 [From BACTRIM] trimethoprim [From BACTRIM] Allergy Unknown Verified 01/24/23 15:22
[2023-06-19 21:27] LABS: Basophils # 0.1 K/mm3 (0-0.2); Basophils % 0.8 % (0.1-2.0); Eosinophils # 0.1 K/mm3 (0.0-0.4); Eosinophils % 1.6 % (0.1-12.0); Hematocrit 45.5 % (42.0-52.0); Hemoglobin 14.8 g/dL (14.1-18.0); Lymphocytes # 1.9 K/mm3 (0.7-4.5); Lymphocytes % 24.1 % (10-50); Mean Corpuscular HGB Conc 32.5 g/dL (31.8-35.4); Mean Corpuscular Hemoglobin 28.5 pg (27.0-31.2); Mean Corpuscular Volume 87.8 fl (80-94); Mean Platelet Volume 9.3 fl (7.4-10.4); Monocytes # 0.5 K/mm3 (0.1-1.0); Monocytes % 6.6 % (1.7-9.3); Neutrophils # 5.2 K/mm3 (1.8-7.8); Neutrophils % 66.9 % (37.0-80.0); Platelet Count 244 K/mm3 (142-424); Red Blood Count 5.19 M/mm3 (4.60-6.20); Red Cell Distribution Width 13.6 % (11.5-17.5); White Blood Count 7.7 K/mm3 (4.8-10.8)
[2023-06-19 21:28] LABS: Chloride 104 mmol/L (98-107)
[2023-06-19 21:29] LABS: Sodium 144 mmol/L (136-145)
[2023-06-19 21:31] LABS: Alanine Aminotransferase 47 U/L (12-78); Albumin Level 4.8 g/dl (3.5-5.0); Albumin/Globulin Ratio 1.2 (1.1-1.8); Alkaline Phosphatase 56 U/L (38-126); Aspartate Amino Transferase 36 U/L (17-59); Blood Urea Nitrogen 19 mg/dl (9-20); Calcium 10.4 mg/dl (8.4-10.2); Carbon Dioxide 30 mmol/L (22.0-30.0); Creatinine Clearance Estimated 119 mL/min (50-200); Estimated Glomerular Filt Rate 62 ml/min (>60); GFR (African American) 75 ML/MIN (>60); Glucose 91 mg/dl (74-100); Lipase 45 U/L (23-300); Total Protein,Serum 8.8 g/dl (6.3-8.2)
--- NOTE | 2023-06-19 22:00 | PC.NURSE ---
Rounded on patient no concerns at this time.
--- NOTE | 2023-06-19 22:18 | CT_ITS ---
PROCEDURE INFORMATION: Exam: CT Abdomen And Pelvis With Contrast Exam date and time: 06/19/2023 10:31 PM Age: 38 years old Clinical indication: Abdominal pain; Localized; Right lower quadrant (rlq); Additional info: Rlq pain, stabbing TECHNIQUE: Imaging protocol: Computed tomography of the abdomen and pelvis with contrast. Radiation optimization: All CT scans at this facility use at least one of these dose optimization techniques: automated exposure control; mA and/or kV adjustment per patient size (includes targeted exams where dose is matched to clinical indication); or iterative reconstruction. Contrast material: ISOVUE; Contrast volume: 75 ml; Contrast route: IV; REPORTING DATA: Count of CT and Cardiac NM exams in prior 12 months: This patient has received 0 known CTs and 0 known cardiac nuclear medicine studies in the 12 months prior to the current study. COMPARISON: RF FL UPPER GI W AIR 09/30/2021 10:01 AM FINDINGS: Liver: Moderately fatty liver. Gallbladder and bile ducts: Unremarkable. Pancreas: Unremarkable. Spleen: Splenomegaly, measuring 13.5 cm in craniocaudal axis. Adrenal glands: Unremarkable. Kidneys and ureters: Distal right ureteral stone (2-3 mm) near the ureterovesical junction associated with very mild right hydroureteronephrosis. Delayed right nephrogram compatible with acute obstructive uropathy. No other renal or ureteral stones. Stomach and bowel: Unremarkable. Appendix: Appendix is visualized and is normal. Intraperitoneal space: No free fluid. No pneumoperitoneum. Vasculature: Unremarkable. Lymph nodes: Unremarkable. Urinary bladder: Bladder is decompressed, limiting evaluation. Reproductive: Mildly enlarged prostate, measuring 4.5 cm in transverse axis. Bones/joints: No evidence of acute osseous abnormality. Soft tissues: Unremarkable. IMPRESSION: 1. Distal right ureteral stone (2-3 mm) near the ureterovesical junction associated with very mild right hydroureteronephrosis. 2. Moderately fatty liver. 3. Splenomegaly. 4. Mildly enlarged prostate. Please correlate with PSA.
[2023-06-19 23:19] LABS: Microscopic, Urine URINE MICROSCOPIC (MICROSCOPIC)
[2023-06-19 23:24] LABS: Appearance,Urine CLEAR (Clear); Bilirubin,Urine Negative (Negative); Blood, Urine 2+ (Negative); Color,Urine YELLOW (Yellow); Glucose,Urine (UA) Negative (Negative); Ketones,Urine Negative (Negative); Leukocyte Esterase,Urine Negative (Negative); Nitrate,Urine Negative (Negative); Protein,Urine Negative (Negative); Specific Gravity, Urine 1.015 (1.005-1.030); Urobilinogen,Urine 0.2 EU/dl (0.2)
[2023-06-19 23:41] LABS: RBC,Urine Occasional #/hpf (0-3); Squamous Epithelial Cell,Urine Occasional #/hpf (0-5)
== END 2023-06-19 23:56 | disposition home or self-care (01) ==
PROVIDERS: Emergency Provider Emergency Medicine; PCP Internal Medicine Adolescent Medicine
DX: N13.2 Hydronephrosis with renal and ureteral calculous obstruction (principal); E86.0 Dehydration; K76.0 Fatty (change of) liver, not elsewhere classified
CPT/HCPCS: 74177; 80053; 81001; 83690; 85025; 96361; 96374; 96375; 99285; J0131; Q9967

== ENCOUNTER 2023-06-23 15:46 | Emergency (ER) | payer OTHER, SELFPAY ==
[2023-06-23] VITALS (7 sets, daily range): BP systolic 91–152; BP diastolic 49–95; PULSE 69–85; RESP 17–20; TEMP 36.7–36.8; O2SAT 97–100; BMI 34.4
--- NOTE | 2023-06-23 16:10 | PC.NURSE ---
Dr. Schwartz at [facility] for pt eval
--- NOTE | 2023-06-23 16:21 | HMH.EDGENADL ---
Discharge Plan Disposition Patient Disposition: Home, Self-Care Prescriptions Prescriptions: New ketorolac 10 mg tablet 10 mg PO Q8H PRN (Reason: pain) 5 Days Qty: 15 0RF Rx Instructions: With food and water No Action venlafaxine 75 mg capsule,extended release 24hr 75 mg PO DAILY carvedilol 12.5 mg tablet 12.5 mg PO Q12H Rx Instructions: must administer with a meal/food meloxicam 15 mg tablet 15 mg PO ONCE 30 Days Qty: 30 2RF omeprazole 40 MG capsule,delayed release(DR/EC) 40 mg PO DAILY losartan 100 MG tablet 100 mg PO DAILY ondansetron HCl 4 mg tablet 4 mg PO Q8H PRN (Reason: nausea and vomiting) 5 Days Qty: 30 0RF tamsulosin 0.4 mg capsule 0.4 mg PO DAILY Qty: 14 0RF Referrals Follow up/Referrals: David Edgar MD [Primary Care Provider] - See instructions Activity Restrictions/Add. Instructions Additional Instructions/Restrictions: Call your family doctor to establish care for this visit to the emergency department and schedule follow-up within 48 hours to ensure improvement. If you have any worsening of your condition or any other concerning signs or symptoms, return to the emergency department or your primary care doctor for further evaluation. Use strainer when you urinate and keep stone for further urologic evaluation. Be sure to stay hydrated Clinical Impressions Clinical Impression: Calcium ureterolithiasis Instructions Patient Instructions: DI for Urinary Tract Infection (UTI), DI for Urinary Tract Infection in Children Discharge ED Provider: Hi Schwartz General Adult HPI General Chief complaint: Urogenital-Male Stated complaint: abd pain Time Seen by Provider: 06/23/23 15:50 Mode of Arrival: Ambulatory Source of Information: Patient Limitations: No Limitations Description of Symptoms (Recalled from ER Triage Doc. by RN): Patient reports he was here on Monday and told he has kidney stones. Reports the pain coming back and intense approx 1-2 hours ago. History of Present Illness HPI narrative: 38-year-old male history of recently diagnosed right-sided nephrolithiasis presenting with right flank and right lower quadrant abdominal pain. Patient states this is the same pain he has been having, mild to moderately worse. Having difficulty urinating and urine is dark whenever he does urinate. Does not believe he has passed the stone. Wanted to make sure everything was okay. Denies fevers or chills, nausea or vomiting, but is having moderate in intensity, stabbing right lower quadrant pain rating to his right flank. Related Data Home Medications Medication Instructions Recorded Confirmed omeprazole 40 mg capsule,delayed 40 mg PO DAILY GERD 02/07/21 06/19/23 release losartan 100 mg tablet 100 mg PO DAILY High blood pressure 01/10/22 01/24/23 carvedilol 12.5 mg tablet 12.5 mg PO Q12H 10/03/22 01/24/23 venlafaxine 75 mg capsule,extended 75 mg PO DAILY 10/03/22 01/24/23 release 24 hr Previous Rx's Medication Instructions Recorded meloxicam 15 mg tablet 15 mg PO ONCE pain 30 days #30 tabs 12/06/22 ondansetron HCl 4 mg tablet 4 mg PO Q8H PRN nausea and 06/19/23 vomiting 5 days #30 tabs tamsulosin 0.4 mg capsule 0.4 mg PO DAILY #14 caps 06/19/23 ketorolac 10 mg tablet 10 mg PO Q8H PRN pain 5 days #15 06/23/23 tabs Allergies Allergy/AdvReac Type Severity Reaction Status Date / Time clindamycin Allergy Mild Rash Verified 01/24/23 15:22 mupirocin [From Bactroban] Allergy Mild Rash Verified 01/24/23 15:22 morphine [MORPHINE] Allergy Unknown Verified 01/24/23 15:22 sulfamethoxazole Allergy Unknown Verified 01/24/23 15:22 [From BACTRIM] trimethoprim [From BACTRIM] Allergy Unknown Verified 01/24/23 15:22 PFSH PFS Disclaimer: The information contained in this section may have been updated after the patient was seen, as this information can be updated by other users. Medical History (Reviewed 01/24/23 @ 15:21
[2023-06-23 16:30] LABS: Basophils % 0.4 % (0.1-2.0); Eosinophils # 0.1 K/mm3 (0.0-0.4); Eosinophils % 1.2 % (0.1-12.0); Hematocrit 43.5 % (42.0-52.0); Hemoglobin 14.3 g/dL (14.1-18.0); Lymphocytes # 1.1 K/mm3 (0.7-4.5); Lymphocytes % 12.7 % (10-50); Mean Corpuscular HGB Conc 32.8 g/dL (31.8-35.4); Mean Corpuscular Hemoglobin 29.2 pg (27.0-31.2); Mean Corpuscular Volume 88.8 fl (80-94); Mean Platelet Volume 9.1 fl (7.4-10.4); Monocytes # 0.3 K/mm3 (0.1-1.0); Monocytes % 3.2 % (1.7-9.3); Neutrophils # 6.9 K/mm3 (1.8-7.8); Neutrophils % 82.5 % (37.0-80.0); Platelet Count 196 K/mm3 (142-424); Red Cell Distribution Width 13.5 % (11.5-17.5); White Blood Count 8.4 K/mm3 (4.8-10.8)
[2023-06-23 16:50] LABS: Anion Gap 14.9 mEq/L (5-15); Blood Urea Nitrogen 17 mg/dl (9-20); Calcium 9.6 mg/dl (8.4-10.2); Carbon Dioxide 30 mmol/L (22.0-30.0); Chloride 106 mmol/L (98-107); Creatinine Clearance Estimated 119 mL/min (50-200); Estimated Glomerular Filt Rate 62 ml/min (>60); GFR (African American) 75 ML/MIN (>60); Glucose 96 mg/dl (74-100); Potassium 3.9 mmoL/L (3.5-5.1); Sodium 147 mmol/L (136-145)
--- NOTE | 2023-06-23 16:52 | PC.NURSE ---
Md and myself spoke with parents, parents taken to pt room, pt ok with parents coming in. [facility] staff at [facility]
[2023-06-23 17:05] LABS: Microscopic, Urine URINE MICROSCOPIC (MICROSCOPIC)
[2023-06-23 17:32] LABS: Appearance,Urine Clear (Clear); Bacteria,Urine Trace /lpf; Bilirubin,Urine Negative (Negative); Blood, Urine 3+ (Negative); Color,Urine Yellow (Yellow); Glucose,Urine (UA) Negative (Negative); Ketones,Urine Negative (Negative); Leukocyte Esterase,Urine Negative (Negative); Nitrate,Urine Negative (Negative); Protein,Urine 1+ (Negative); Squamous Epithelial Cell,Urine Occasional #/hpf (0-5); Urobilinogen,Urine 0.2 EU/dl (0.2)
--- NOTE | 2023-06-23 17:38 | PC.NURSE ---
Rounded on pt. No needs voiced at this time.
== END 2023-06-23 18:49 | disposition home or self-care (01) ==
PROVIDERS: Emergency Provider Emergency Medicine; PCP Internal Medicine Adolescent Medicine
DX: N20.1 Calculus of ureter (principal); R10.31 Right lower quadrant pain
CPT/HCPCS: 80048; 81001; 85025; 96361; 96374; 96375; 99284; J0131

== ENCOUNTER 2023-11-03 08:18 | Outpatient (CLI) | payer BC, SELFPAY ==
[2023-11-03 08:43] LABS: Basophils # 0.1 K/mm3 (0-0.2); Basophils % 0.9 % (0.1-2.0); Eosinophils # 0.1 K/mm3 (0.0-0.4); Eosinophils % 1.5 % (0.1-12.0); Hematocrit 41.9 % (42.0-52.0); Hemoglobin 14.3 g/dL (14.1-18.0); Lymphocytes # 1.8 K/mm3 (0.7-4.5); Lymphocytes % 25.9 % (10-50); Mean Corpuscular HGB Conc 34.1 g/dL (31.8-35.4); Mean Corpuscular Hemoglobin 29.4 pg (27.0-31.2); Mean Corpuscular Volume 86.2 fl (80-94); Mean Platelet Volume 9.2 fl (7.4-10.4); Monocytes # 0.5 K/mm3 (0.1-1.0); Monocytes % 6.7 % (1.7-9.3); Neutrophils # 4.4 K/mm3 (1.8-7.8); Neutrophils % 65.1 % (37.0-80.0); Platelet Count 218 K/mm3 (142-424); Red Blood Count 4.86 M/mm3 (4.60-6.20); Red Cell Distribution Width 13.8 % (11.5-17.5); White Blood Count 6.8 K/mm3 (4.8-10.8)
[2023-11-03 09:21] LABS: Hemoglobin A1C 5.1 % (4.0-6.0)
[2023-11-03 09:29] LABS: Chloride 104 mmol/L (98-107); Potassium 4.4 mmoL/L (3.5-5.1); Sodium 140 mmol/L (136-145)
[2023-11-03 09:31] LABS: Blood Urea Nitrogen 19 mg/dl (9-20)
[2023-11-03 09:32] LABS: Alanine Aminotransferase 34 U/L (12-78); Albumin Level 4.2 g/dl (3.5-5.0); Albumin/Globulin Ratio 1.6 (1.1-1.8); Alkaline Phosphatase 43 U/L (38-126); Anion Gap 12.4 mEq/L (5-15); Aspartate Amino Transferase 29 U/L (17-59); Bilirubin,Total 0.6 mg/dl (0.2-1.3); Calcium 9.2 mg/dl (8.4-10.2); Carbon Dioxide 28 mmol/L (22.0-30.0); Cholesterol 181 mg/dl (140-200); Estimated Glomerular Filt Rate 75 ml/min (>60); GFR (African American) 91 ML/MIN (>60); Globulin 2.7 g/dL (1.3-3.2); Glucose 95 mg/dl (74-100); Total Protein,Serum 6.9 g/dl (6.3-8.2); Triglycerides 105 mg/dl (30-150); VLDL Cholesterol 21 mg/dL (0-40)
[2023-11-03 09:33] LABS: HDL Cholesterol 36 mg/dl (40-60)
[2023-11-03 09:44] LABS: Direct LDL Cholesterol 108.67 mg/dL (100-129)
[2023-11-03 10:03] LABS: Thyroid Stimulating Hormone 2.37 uIU/mL (0.465-4.68)
[2023-11-03 10:27] LABS: Prostate Specific Ag Screen 0.5 ng/ml (0.0-4.0)
[2023-11-03 10:46] LABS: Vitamin B12 414 pg/mL (239-931)
== END 2023-11-03 23:59 ==
LOC: LAB 08:21
PROVIDERS: PCP Internal Medicine Adolescent Medicine; Visit Provider Nurse Practitioner Family
DX: I10 Essential (primary) hypertension (principal); E66.9 Obesity, unspecified; Z68.36 Body mass index [BMI] 36.0-36.9, adult; R53.81 Other malaise; N40.1 Benign prostatic hyperplasia with lower urinary tract symptoms; Z79.899 Other long term (current) drug therapy; Z12.5 Encounter for screening for malignant neoplasm of prostate
CPT/HCPCS: 36415; 80053; 80061; 82607; 83036; 84443; 85025; G0103

== ENCOUNTER 2023-11-10 19:26 | Emergency (ER) | payer BC, SELFPAY ==
--- NOTE | 2023-11-10 19:31 | ED_ITS ---
Discharge Plan Disposition Patient Disposition: Home, Self-Care Condition: Good Prescriptions Prescriptions: New promethazine-DM 6.25-15 mg/5 mL syrup 5 ml PO Q6H PRN (Reason: Cough) Qty: 180 0RF benzonatate 200 mg capsule 200 mg PO TID PRN (Reason: cough) Qty: 30 0RF prednisone [prednisone] 20 mg tablet 20 mg PO BID 5 Days Qty: 10 0RF No Action carvedilol 12.5 mg tablet 12.5 mg PO Q12H Rx Instructions: must administer with a meal/food sertraline 50 mg tablet 50 mg PO DAILY Patient Comments: TAKE ONE TABLET BY MOUTH EVERY DAY omeprazole 40 MG capsule,delayed release(DR/EC) 40 mg PO DAILY losartan 100 MG tablet 100 mg PO DAILY tamsulosin 0.4 mg capsule 0.4 mg PO DAILY Qty: 14 0RF Referrals Follow up/Referrals: David Edgar MD [Primary Care Provider] - See instructions Clinical Impressions Clinical Impression: Influenza, Cough Instructions Patient Instructions: DI for Cough -- Adult Discharge ED Provider: Sujey Maynard [facility] General Stated complaint: congestion cough st Time Seen by Provider: 11/10/23 19:38 History of Present Illness Provider Complaint: Patient diagnosed with flu 5 days ago. Still has congestion, cough. Tonight coughed up bloody mucous. Not getting much sleep due to cough. Onset (ago): day(s) (5) Location: chest Associated symptoms: cough Treatments prior to arrival: none Related Data Home Medications Medication Instructions Recorded Confirmed omeprazole 40 mg capsule,delayed 40 mg PO DAILY GERD 02/07/21 11/10/23 release losartan 100 mg tablet 100 mg PO DAILY High blood pressure 01/10/22 11/10/23 carvedilol 12.5 mg tablet 12.5 mg PO Q12H 10/03/22 11/10/23 sertraline 50 mg tablet 50 mg PO DAILY 11/10/23 11/10/23 Previous Rx's Medication Instructions Recorded tamsulosin 0.4 mg capsule 0.4 mg PO DAILY #14 caps 06/19/23 benzonatate 200 mg capsule 200 mg PO TID PRN cough #30 caps 11/10/23 prednisone 20 mg tablet 20 mg PO BID 5 days #10 tabs 11/10/23 promethazine-DM 6.25 mg-15 mg/5 mL 5 ml PO Q6H PRN Cough #180 mL 11/10/23 oral syrup Allergies Allergy/AdvReac Type Severity Reaction Status Date / Time clindamycin Allergy Mild Rash Verified 01/24/23 15:22 mupirocin [From Bactroban] Allergy Mild Rash Verified 01/24/23 15:22 morphine [MORPHINE] Allergy Unknown Verified 01/24/23 15:22 sulfamethoxazole Allergy Unknown Verified 01/24/23 15:22 [From BACTRIM] trimethoprim [From BACTRIM] Allergy Unknown Verified 01/24/23 15:22 [facility] Disclaimer: The information contained in this section may have been updated after the patient was seen, as this information can be updated by other users. Medical History Foot pain, bilateral Social History Smoking Status: Never smoker second hand exposure: No alcohol intake: never substance use type: denies use current occupational status: employed Travel in the last 8 weeks: None household members: spouse and children housing: house ROS Obtained: Yes All systems reviewed & no additional complaints except as documented Constitutional Constitutional: Reports body ache, Reports chills and Reports fever(s) Respiratory Respiratory: Reports chest congestion and Reports cough Physical Exam General General appearance: alert and in no apparent distress Head Head exam: atraumatic and normocephalic Eye Eye exam: Present normal appearance, PERRL and EOMI; Absent scleral icterus, conjunctival redness, conjunctival injection or periorbital swelling ENT ENT exam: Present normal oropharynx, mucous membranes moist and TM's normal bilaterally Neck Neck exam: Present normal inspection, full ROM and trachea midline; Absent lymphadenopathy Chest Chest inspection: Present symmetric chest wall rise Respiratory Respiratory exam: Absent respiratory distress, wheezes, stridor, accessory muscle use or prolonged expiratory phase Cardiovascular Cardiovascular exam: Present regular rate and normal rhythm Abdominal Exam Abdominal exam: Present soft; Absent distention, tenderness, guarding, rebound or rigidity Neurological Exam Neurological exam: Present alert and CN II-XII intact (Grossly); Absent motor sensory deficit Medical Decision Making Ed Inquiry Pt receiving controlled substance: No
[2023-11-10 19:35] VITALS: BP 131/90; PULSE 90; RESP 21; TEMP 37.3; O2SAT 98; BMI 31.9
[2023-11-10 19:42] VITALS: BP 131/90; PULSE 90; RESP 21; TEMP 37.3; O2SAT 98
[2023-11-10] MEDS: methylPREDNISolone ACETATE 80MG/ML VIAL 80 MG IM (19:48)
== END 2023-11-10 20:02 | disposition home or self-care (01) ==
PROVIDERS: Emergency Provider Physician Assistant; PCP Internal Medicine Adolescent Medicine
DX: J10.1 Influenza due to other identified influenza virus with other respiratory manifestations (principal); R05.8 Other specified cough; R09.89 Other specified symptoms and signs involving the circulatory and respiratory systems; R50.9 Fever, unspecified
CPT/HCPCS: 96372; 99212; 99214; G0463; J1040

== ENCOUNTER 2023-12-03 16:04 | Emergency (ER) | payer BC, SELFPAY ==
[2023-12-03 17:05] VITALS: BP 136/89; PULSE 73; RESP 18; TEMP 36.9; O2SAT 97; BMI 36.3
--- NOTE | 2023-12-03 17:24 | EXP.UTC ---
Discharge Plan Disposition Patient Disposition: Home, Self-Care Condition: Good Prescriptions Prescriptions: New prednisone [prednisone] 20 mg tablet 20 mg PO BID 3 Days Qty: 6 0RF amoxicillin [amoxicillin] 875 mg tablet 875 mg PO Q12H Qty: 20 0RF benzonatate [benzonatate] 100 mg capsule 100 mg PO TIDP PRN (Reason: Cough) Qty: 30 0RF No Action carvedilol 12.5 mg tablet 12.5 mg PO Q12H Rx Instructions: must administer with a meal/food sertraline 50 mg tablet 50 mg PO DAILY Patient Comments: TAKE ONE TABLET BY MOUTH EVERY DAY omeprazole 40 MG capsule,delayed release(DR/EC) 40 mg PO DAILY losartan 100 MG tablet 100 mg PO DAILY tamsulosin 0.4 mg capsule 0.4 mg PO DAILY Qty: 14 0RF Referrals Follow up/Referrals: David Edgar MD [Primary Care Provider] - See instructions Activity Restrictions/Add. Instructions Additional Instructions/Restrictions: Drink plenty of fluids. Take tylenol or ibuprofen for pain or fever. Take the medications as directed. Follow up with your regular doctor. GO TO THE ER FOR ANY WORSENING SYMPTOMS Throw your tooth brush away and get a new one. Clinical Impressions Clinical Impression: Strep throat Stand Alone Forms Stand Alone Forms: Work/School Release Instructions Patient Instructions: DI for Strep Throat, Strep Throat Discharge ED Provider: Bradley Harmon [facility] General Stated complaint: sore throat, fever, TSE Time Seen by Provider: 12/03/23 17:24 History of Present Illness Provider Complaint: He states that for the past 1 day he has had worsening sore throat, chills, and malaise. Related Data Home Medications Medication Instructions Recorded Confirmed omeprazole 40 mg capsule,delayed 40 mg PO DAILY GERD 02/07/21 12/03/23 release losartan 100 mg tablet 100 mg PO DAILY High blood pressure 01/10/22 12/03/23 carvedilol 12.5 mg tablet 12.5 mg PO Q12H 10/03/22 12/03/23 sertraline 50 mg tablet 50 mg PO DAILY 11/10/23 12/03/23 Previous Rx's Medication Instructions Recorded tamsulosin 0.4 mg capsule 0.4 mg PO DAILY #14 caps 06/19/23 amoxicillin 875 mg tablet 875 mg PO Q12H #20 tabs 12/03/23 benzonatate 100 mg capsule 100 mg PO TIDP PRN Cough #30 caps 12/03/23 prednisone 20 mg tablet 20 mg PO BID 3 days #6 tabs 12/03/23 Allergies Allergy/AdvReac Type Severity Reaction Status Date / Time clindamycin Allergy Mild Rash Verified 12/03/23 17:35 mupirocin [From Bactroban] Allergy Mild Rash Verified 12/03/23 17:35 morphine [MORPHINE] Allergy Unknown Verified 12/03/23 17:35 sulfamethoxazole Allergy Unknown Verified 12/03/23 17:35 [From BACTRIM] trimethoprim [From BACTRIM] Allergy Unknown Verified 12/03/23 17:35 PFSH PFS Disclaimer: The information contained in this section may have been updated after the patient was seen, as this information can be updated by other users. Medical History Foot pain, bilateral Social History Smoking Status: Never smoker second hand exposure: No alcohol intake: never substance use type: denies use current occupational status: employed Travel in the last 8 weeks: None household members: spouse and children housing: house ROS Obtained: Yes All systems reviewed & no additional complaints except as documented Constitutional Constitutional: Reports chills and Reports fever(s) Eyes Eyes: Denies eye discharge ENT Ears, Nose, Mouth, and Throat: Reports as per HPI Cardiovascular Cardiovascular: Denies chest pain Respiratory Respiratory: Denies chest congestion and Reports cough Gastrointestinal Gastrointestingal: Reports nausea; Denies abdominal pain, constipation, cramping, diarrhea or vomiting Musculoskeletal Musculoskeletal: Denies arthralgias Integumentary/Breasts Skin/Breast: Denies rash Neurologic Neurologic: Denies paresthesias Physical Exam General General appearance: alert and in no apparent distress Head Head exam: atraumatic, normocephalic and normal inspection Eye Eye exam: Present normal appearance, PERRL and EOMI ENT ENT exam: Present mucous membranes moist and normal external ear exam Expanded ENT Exam TM/Canal exam: Bilateral TM: erythema and bulging Nose exam: Absent sinus tenderness Mouth exam: Present normal external inspection; Absent drooling Teeth exam: Present normal inspection Throat exam: Present tonsillar erythema, tonsillomegaly and tonsillar exudate Neck Neck exam: Present normal inspection, full ROM and trachea midline; Absent tenderness, meningismus or lymphadenopathy Chest Chest inspection: Present normal inspection and symmetric chest wall rise; Absent tenderness Respiratory Respiratory exam: Present normal lung sounds bilaterally; Absent respiratory distress, wheezes, stridor or accessory muscle use Cardiovascular Cardiovascular exam: Present regular rate and normal rhythm; Absent systolic murmur or diastolic murmur Abdominal Exam Abdominal exam: Present soft and normal bowel sounds; Absent distention, tenderness, guarding, rebound or rigidity Extremities Exam Extremities exam: Present normal inspection and normal capillary refill; Absent calf tenderness Back Exam Back exam: Present normal inspection and full ROM; Absent tenderness, CVA tenderness (R) or CVA tenderness (L) Neurological Exam Neurological exam: Present alert, oriented X3 and CN II-XII intact Psychiatric Psychiatric exam: Present normal affect and normal mood Skin Skin exam: Present warm, dry, intact and normal color Medical Decision Making Medical Records Medical records reviewed: No I reviewed the patient's medical records. Ed [place] Pt receiving controlled substance: No Lab Data Lab results reviewed: Yes I reviewed the patient's lab results.
[2023-12-03 17:56] LABS: UTC Strep Screen (Rapid) Negative (Negative)
[2023-12-03 18:01] VITALS: BP 136/89; PULSE 73; RESP 18; TEMP 36.9; O2SAT 97
[2023-12-03 18:05] LABS: Influenza A, PCR Not Detected (NotDetected); Influenza B, PCR Not Detected (NotDetected)
[2023-12-03 18:52] LABS: Coronavirus 19, PCR Detected (NotDetected)
== END 2023-12-03 18:05 | disposition home or self-care (01) ==
PROVIDERS: Emergency Provider Nurse Practitioner Family; PCP Internal Medicine Adolescent Medicine
DX: U07.1 COVID-19 (principal); R50.9 Fever, unspecified; R07.0 Pain in throat; R05.9 Cough, unspecified
CPT/HCPCS: 87636; 87880; 99212; 99214; G0463

== ENCOUNTER 2024-11-01 09:05 | Outpatient (CLI) | payer OTHER, SELFPAY ==
[2024-11-01 09:40] LABS: Basophils # 0.1 K/mm3 (0-0.2); Basophils % 0.9 % (0.1-2.0); Eosinophils # 0.1 K/mm3 (0.0-0.4); Eosinophils % 2.1 % (0.1-12.0); Hematocrit 44.2 % (42.0-52.0); Hemoglobin 14.5 g/dL (14.1-18.0); Lymphocytes # 1.4 K/mm3 (0.7-4.5); Lymphocytes % 26.1 % (10-50); Mean Corpuscular HGB Conc 32.8 g/dL (31.8-35.4); Mean Corpuscular Hemoglobin 28.2 pg (27.0-31.2); Mean Platelet Volume 10.9 fl (7.4-10.4); Monocytes # 0.4 K/mm3 (0.1-1.0); Neutrophils # 3.4 K/mm3 (1.8-7.8); Neutrophils % 62.7 % (37.0-80.0); Platelet Count 204 K/mm3 (142-424); Red Blood Count 5.14 M/mm3 (4.60-6.20); White Blood Count 5.4 K/mm3 (4.8-10.8)
[2024-11-01 10:18] LABS: Alanine Aminotransferase 32 U/L (12-78); Albumin Level 4.5 g/dl (3.5-5.0); Albumin/Globulin Ratio 1.8 (1.1-1.8); Alkaline Phosphatase 48 U/L (38-126); Anion Gap 9.4 mEq/L (5-15); Aspartate Amino Transferase 38 U/L (17-59); Blood Urea Nitrogen 18 mg/dl (9-20); Calcium 9.6 mg/dl (8.4-10.2); Carbon Dioxide 30 mmol/L (22.0-30.0); Chloride 102 mmol/L (98-107); Chol/HDL Ratio 10.7 (1-3.5); Cholesterol 257 mg/dl (140-200); Estimated Glomerular Filt Rate 67 ml/min (>60); GFR (African American) 82 ML/MIN (>60); Globulin 2.5 g/dL (1.3-3.2); Glucose 88 mg/dl (74-100); HDL Cholesterol 24 mg/dl (40-60); Hemoglobin A1C 5.2 % (4.0-6.0); Potassium 4.4 mmoL/L (3.5-5.1); Sodium 137 mmol/L (136-145); Triglycerides 286 mg/dl (30-150); VLDL Cholesterol 57 mg/dL (0-40)
[2024-11-01 10:29] LABS: Direct LDL Cholesterol 168.24 mg/dL (100-129)
[2024-11-01 10:34] LABS: 25-OH Vitamin D, Total 32.9 ng/mL (30-100)
[2024-11-01 10:49] LABS: Prostate Specific Ag Screen 0.7 ng/ml (0.0-4.0); Thyroid Stimulating Hormone 1.95 uIU/mL (0.465-4.68)
[2024-11-01 11:08] LABS: Vitamin B12 749 pg/mL (239-931)
[2024-11-02 08:12] LABS: Testosterone,Total 542 ng/dL (264-916)
== END 2024-11-01 23:59 | disposition home or self-care (01) ==
PROVIDERS: PCP Internal Medicine Adolescent Medicine; Visit Provider Nurse Practitioner Family
DX: N40.1 Benign prostatic hyperplasia with lower urinary tract symptoms (principal); R40.0 Somnolence; I10 Essential (primary) hypertension; G47.33 Obstructive sleep apnea (adult) (pediatric); R79.89 Other specified abnormal findings of blood chemistry
CPT/HCPCS: 36415; 80053; 80061; 82306; 82607; 83036; 84403; 84443; 85025; G0103

== ENCOUNTER 2024-11-21 22:09 | Emergency (ER) | payer OTHER, SELFPAY ==
[2024-11-21 22:10] VITALS: BP 164/108; PULSE 83; RESP 20; TEMP 37; O2SAT 99; BMI 34.8
[2024-11-21 22:30] VITALS: BP 151/99; PULSE 85; O2SAT 98
--- NOTE | 2024-11-21 22:39 | CT_ITS ---
PROCEDURE INFORMATION: Exam: CT Lumbar Spine Without Contrast Exam date and time: 11/21/2024 10:49 PM Age: 39 years old Clinical indication: Low back pain; Additional info: Low back pain, lle radiculopathy TECHNIQUE: Imaging protocol: Computed tomography of the lumbar spine without contrast. Radiation optimization: All CT scans at this facility use at least one of these dose optimization techniques: automated exposure control; mA and/or kV adjustment per patient size (includes targeted exams where dose is matched to clinical indication); or iterative reconstruction. COMPARISON: MR LUMBAR SPINE WO CON 07/26/2019 4:02 PM FINDINGS: Bones/joints: No acute fracture. Normal alignment. L1/2: No significant disc herniation or bulge. No central canal or neural foraminal narrowing. L2/3: No significant disc herniation or bulge. No central canal or neural foraminal narrowing. L3/4: No significant disc herniation or bulge. No central canal or neural foraminal narrowing. L4/5: Right paracentral disc protrusion/extrusion in right lateral recess. Moderate right anterior central canal narrowing. Moderate right neural foraminal narrowing. Mild left neural foraminal narrowing. L5/S1: No significant disc herniation or bulge. No central canal or neural foraminal narrowing. Soft tissues: Unremarkable. IMPRESSION: Right paracentral disc protrusion/extrusion contributing to right central canal and right neural foraminal narrowing at L4/5 level.
--- NOTE | 2024-11-21 22:39 | XR_ITS ---
PROCEDURE INFORMATION: Exam: XR Left Foot Exam date and time: 11/21/2024 10:51 PM Age: 39 years old Clinical indication: Pain; Foot; Left; Additional info: Pain lateral aspect/toes TECHNIQUE: Imaging protocol: Radiologic exam of the left foot. Views: 3 or more views. COMPARISON: CR XR FOOT WT BEARING LT 3V 08/08/2022 1:53 PM FINDINGS: Bones/joints: Stable ORIF of medial malleolus and distal fibular shaft. No acute fracture. Anatomic alignment. Soft tissues: Unremarkable. IMPRESSION: No acute radiographic findings identified.
--- NOTE | 2024-11-21 22:46 | ED_ITS ---
Discharge Plan Disposition Patient Disposition: Home, Self-Care Prescriptions Prescriptions: New methocarbamol 500 mg tablet 500 mg PO Q6H PRN (Reason: pain) Qty: 30 0RF lidocaine 5 % adhesive patch,medicated 1 patch topical DAILY PRN (Reason: pain) Qty: 30 0RF Rx Instructions: leave on most painful area for up to 12 hrs No Action carvedilol 12.5 mg tablet 12.5 mg PO Q12H Rx Instructions: must administer with a meal/food sertraline 50 mg tablet 50 mg PO DAILY Patient Comments: TAKE ONE TABLET BY MOUTH EVERY DAY prednisone [prednisone] 20 mg tablet 20 mg PO BID 3 Days Qty: 6 0RF amoxicillin [amoxicillin] 875 mg tablet 875 mg PO Q12H Qty: 20 0RF benzonatate [benzonatate] 100 mg capsule 100 mg PO TIDP PRN (Reason: Cough) Qty: 30 0RF Paxlovid 300 mg (150 mg x 2)-100 mg tablets,dose pack See Rx Instructions .ROUTE .COMPLEX Qty: 30 0RF Rx Instructions: take TWO 150 mg tablets of nirmatrelvir with ONE 100 mg tablet of ritonavir twice daily for 5 days omeprazole 40 MG capsule,delayed release(DR/EC) 40 mg PO DAILY losartan 100 MG tablet 100 mg PO DAILY tamsulosin 0.4 mg capsule 0.4 mg PO DAILY Qty: 14 0RF Referrals Follow up/Referrals: David Edgar MD [Primary Care Provider] - See instructions Activity Restrictions/Add. Instructions Additional Instructions/Restrictions: Please follow-up with your primary care provider. Please return to the emergency department if you develop any new or worsening symptoms or become concerned for your health. Please use lidocaine patches, Tylenol, ibuprofen, Robaxin as needed for pain. Recommend reducing physical activity for the next few days to see if foot pain improves. Clinical Impressions Clinical Impression: Acute foot pain Qualifiers: Laterality: left Qualified Code(s): M79.672 - Pain in left foot Back pain Qualifiers: Back pain location: low back pain Print Language Print Language: Trinidadian Discharge ED Provider: Avi Hill General Adult HPI <Bhargavi Thomas DO - Last Filed: 11/21/24 23:11> General Chief complaint: PAIN Stated complaint: Left foot painful,no injury Time Seen by Provider: 11/21/24 22:17 Mode of Arrival: Ambulatory Source of Information: Patient Limitations: No Limitations Description of Symptoms (Recalled from ER Triage Doc. by RN): pt limped into the ED complaining of severe left foot pain, pt denies any recent injury to the foot. pt states he got home from last night and it began hurting and has no been relieved by any home treatments. pt also reports a complaint of back pain that he thinks may be a kidney stone, pt is due to see urology related to this pain on 11/28 History of Present Illness HPI narrative: This patient is a 39-year-old male who has a history of degenerative disc disease status post spine surgery, left ankle injury status post operative fixation a long time ago presented to the emergency department for evaluation with concern for atraumatic low back pain and left foot pain. Patient states that he has been dealing with some low back pain for several days now, he thought it might be a kidney stone but it does not feel like prior kidney stones. He states that he made an appoint with urology to follow-up but has not had that appointment yet. 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 He went home, sat down for a bit, and when he got up to try and walk again he had significant pain in his left foot, mostly on the lateral aspect extending down into his toes. He describes it as a stinging/tingling pain as if his foot is asleep. He states it is so bad that he cannot walk on that foot. He notes that he has a history of plantar fasciitis but this does not feel similar. No fevers, redness, warmth, wounds, or known injuries. No history of gout, septic arthritis, or other concerns. He also denies any saddle anesthesia, incontinence, urinary retention, or other concerns. Related Data Home Medications ?Medication ?Instructions ?Recorded ?Confirmed omeprazole 40 mg capsule,delayed 40 mg PO DAILY GERD 02/07/21 12/03/23 release losartan 100 mg tablet 100 mg PO DAILY High blood pressure 01/10/22 12/03/23 carvedilol 12.5 mg tablet 12.5 mg PO Q12H 10/03/22 12/03/23 sertraline 50 mg tablet 50 mg PO DAILY 11/10/23 12/03/23 Previous Rx's ?Medication ?Instructions ?Recorded tamsulosin 0.4 mg capsule 0.4 mg PO DAILY #14 caps 06/19/23 amoxicillin 875 mg tablet 875 mg PO Q12H #20 tabs 12/03/23 benzonatate 100 mg capsule 100 mg PO TIDP PRN Cough #30 caps 12/03/23 nirmatrelvir 300 mg (150 mg See Rx Instructions PO .COMPLEX 12/03/23 x2)-ritonavir 100 mg tablet,dose #30 tabs pack (Paxlovid) prednisone 20 mg tablet 20 mg PO BID 3 days #6 tabs 12/03/23 lidocaine 5 % topical patch 1 patch topical DAILY PRN pain #30 11/21/24 ea methocarbamol 500 mg tablet 500 mg PO Q6H PRN pain #30 tabs 11/21/24 Allergies Allergy/AdvReac Type Severity Reaction Status Date / Time clindamycin Allergy Mild Rash Verified 12/03/23 17:35 mupirocin (From Bactroban) Allergy Mild Rash Verified 12/03/23 17:35 morphine (MORPHINE) Allergy Unknown Verified 12/03/23 17:35 sulfamethoxazole (From Allergy Unknown Verified 12/03/23 17:35 BACTRIM) trimethoprim (From BACTRIM) Allergy Unknown Verified 12/03/23 17:35 [facility] <Bhargavi Thomas DO - Last Filed: 11/21/24 23:11> [facility] Disclaimer: The information contained in this section may have been updated after the patient was seen, as this information can be updated by other users. Medical History Foot pain, bilateral Social History Smoking Status: Never smoker second hand exposure: No alcohol intake: never substance use type: denies use current occupational status: employed Travel in the last 8 weeks: None household members: spouse and children housing: house Have you lived/traveled outside [place] in past 30 days?: No Contact w/someone who lives/traveled outside [place] past 30 days?: No Exposure to someone with infectious disease in past 14 days?: No Do you have a fever (greater than 100.4 F or 38 C)?: No Have you tested positive for COVID-19: No Exposed to someone with COVID-19 in past 14 days?: No Do you have a sore throat?: No Do you have a cough?: No Do you have any weakness?: No Do you have any diarrhea?: No Are you experiencing any unusual bleeding?: No Do you have any muscle aches/pain?: No Do you have any abdominal pain?: No Are you experiencing loss of taste or smell?: No Other Medical History Have you received the Flu Vaccine for this season: Yes Have you received the Pneumonia Vaccine: No <Bhargavi Thomas DO - Last Filed: 11/21/24 23:11> ROS Obtained: Yes All systems reviewed & no additional complaints except as documented Physical Exam <Bhargavi Thomas DO - Last Filed: 11/21/24 23:11> General General appearance: alert and in no apparent distress Head Head exam: atraumatic and normocephalic Eye Eye exam: Present normal appearance, PERRL and EOMI ENT ENT exam: Present normal exam, normal oropharynx, mucous membranes moist and normal external ear exam Neck Neck exam: Present normal inspection, full ROM and trachea midline; Absent tenderness Chest Chest inspection: Present normal inspection and symmetric chest wall rise; Absent tenderness Respiratory Respiratory exam: Present normal lung sounds bilaterally; Absent respiratory distress, wheezes, stridor or accessory muscle use Cardiovascular Cardiovascular exam: Present regular rate and normal rhythm Abdominal Exam Abdominal exam: Present soft; Absent distention, tenderness or guarding Extremities Exam Extremities exam: Present full ROM and normal capillary refill; Absent edema Expanded Lower Extremity Exam Left: Top foot image: 2 1. Pain/TTP Comment: Neurovascularly intact distally with good capillary refill, palpable pulses, intact sensation. No wounds, lesions, or rashes. Back Exam Back exam: Present full ROM and tenderness (Lumbar spine, paraspinal muscles) Neurological Exam Neurological exam: Present alert, oriented X3, CN II-XII intact and normal gait; Absent motor sensory deficit Psychiatric Psychiatric exam: Present normal affect and normal mood Skin Skin exam: Present warm and dry Medical Decision Making <Bhargavi Thomas DO - Last Filed: 11/21/24 23:11> Medical Records Medical records reviewed: Yes I reviewed the patient's medical records. Screening: Per USPSTF and CDC recommendations, given the prevalence of disease in our region, it is our hospital?s policy to screen for HIV and viral Hepatitis for all patients aged 18 and over and those with ongoing risk factors. Ed Inquiry Pt receiving controlled substance: No Vital Signs: 11/21/24 22:10 11/21/24 22:30 11/21/24 23:00 Temperature 98.6 F Temperature Source Oral Pulse Rate 85 75 Pulse Rate [Right] 83 Respiratory Rate 20 Blood Pressure 151/99 H 155/98 H Blood Pressure [Right Arm] 164/108 H Blood Pressure Mean 116 117 Blood Pressure Mean [Right Arm] 126 02 Sat by Pulse Oximetry 99 98 98 Oxygen Delivery Method Room Air Room Air Room Air Lab Data Lab results reviewed: Yes I reviewed the patient's lab results. Lab Results 11/21/24 23:11: Urine Color Yellow, Urine Appearance Clear, Urine pH 6.5, Ur Specific [place] 1.025, Urine Protein Negative, Urine Glucose (UA) Negative, Urine Ketones Negative, Urine Blood Negative, Urine Nitrate Negative, Urine Bilirubin Negative, Urine Urobilinogen 0.2, Ur Leukocyte Esterase Negative, Urine WBC Occasional, Ur Squamous Epith Cells Occasional, Urine Bacteria Trace, Urine Mucus 1+ Orders (Tests/Meds): ED MEDICATIONS Discontinued Medications Generic Name Dose Route Start Last Admin Trade Name Paoloq PRN Reason Stop Dose Admin Acetaminophen 1,000 mg 11/21/24 22:39 11/21/24 22:50 Acetaminophen 500mg Tab PO 11/21/24 22:40 1,000 mg ONCE ONE Administration Ketorolac Tromethamine 30 mg 11/21/24 22:39 11/21/24 22:50 Ketorolac 30mg/Ml Vial IM 11/21/24 22:40 30 mg ONCE ONE Administration Lidocaine 1 each 11/21/24 23:51 Lidocaine 5% Transdermal Patch TP 11/21/24 23:52 ONCE ONE Methocarbamol 500 mg 11/21/24 22:40 11/21/24 22:50 Methocarbamol 500mg Tablet PO 11/21/24 22:41 500 mg ONCE ONE Administration ORDERS Category Date Time Status CT lumbar spine wo con Stat Cat Scan 11/21/24 22:39 Completed Foot XR left minimum 3 views [XR foot LT min 3V] Stat Exams 11/21/24 22:39 Completed UA [Urinalysis and Microscopic] Stat Lab 11/21/24 23:11 Completed Medical Decision Narrative: In summary, this patient is a 39-year-old male presenting to the Emergency Department for evaluation of low back pain and left foot pain without any known trauma. Differential diagnoses considered include but are not limited to lumbar radiculopathy, disc radiation, stress fracture, cauda equina syndrome, spinal cord compression, gouty arthritis. Ruling out the most morbid conditions drove assessment. It should be noted patient's history includes obesity, degenerative disc disease, which are not at goal therapy. This complicates all aspects of care by increasing patient's risk for morbidity. On exam, the patient is lying in bed in no acute distress. I do not have any concerns for infection based on clinical exam, and he also has great pulses and capillary refill in his left foot some not concern for arterial occlusion or ischemia. I also do not have any concerns for cauda equina syndrome or spinal cord compression because he has no alarm findings/history and is neurologically intact in his lower extremities. I feel his current presentation is most likely consistent with lumbar radiculopathy. Workup included CT lumbar spine, urinalysis, x-rays of the left foot. Patient was given oral Tylenol, IM Toradol, oral Robaxin for symptomatic improvement. Patient care signed out the oncoming provider, Dr. Hill, pending workup and disposition. <Avi Hill MD - Last Filed: 11/22/24 00:04> Vital Signs: 11/21/24 22:10 11/21/24 22:30 11/21/24 23:00 Temperature 98.6 F Temperature Source Oral Pulse Rate 85 75 Pulse Rate [Right] 83 Respiratory Rate 20 Blood Pressure 151/99 H 155/98 H Blood Pressure [Right Arm] 164/108 H Blood Pressure Mean 116 117 Blood Pressure Mean [Right Arm] 126 02 Sat by Pulse Oximetry 99 98 98 Oxygen Delivery Method Room Air Room Air Room Air Lab Data Lab Results 11/21/24 23:11: Urine Color Yellow, Urine Appearance Clear, Urine pH 6.5, Ur Specific [place] 1.025, Urine Protein Negative, Urine Glucose (UA) Negative, Urine Ketones Negative, Urine Blood Negative, Urine Nitrate Negative, Urine Bilirubin Negative, Urine Urobilinogen 0.2, Ur Leukocyte Esterase Negative, Urine WBC Occasional, Ur Squamous Epith Cells Occasional, Urine Bacteria Trace, Urine Mucus 1+ Orders (Tests/Meds): ED MEDICATIONS Discontinued Medications Generic Name Dose Route Start Last Admin Trade Name Freq PRN Reason Stop Dose Admin Acetaminophen 1,000 mg 11/21/24 22:39 11/21/24 22:50 Acetaminophen 500mg Tab PO 11/21/24 22:40 1,000 mg ONCE ONE Administration Ketorolac Tromethamine 30 mg 11/21/24 22:39 11/21/24 22:50 Ketorolac 30mg/Ml Vial IM 11/21/24 22:40 30 mg ONCE ONE Administration Lidocaine 1 each 11/21/24 23:51 Lidocaine 5% Transdermal Patch TP 11/21/24 23:52 ONCE ONE Methocarbamol 500 mg 11/21/24 22:40 11/21/24 22:50 Methocarbamol 500mg Tablet PO 11/21/24 22:41 500 mg ONCE ONE Administration ORDERS Category Date Time Status CT lumbar spine wo con Stat Cat Scan 11/21/24 22:39 Completed Foot XR left minimum 3 views [XR foot LT min 3V] Stat Exams 11/21/24 22:39 Completed UA [Urinalysis and Microscopic] Stat Lab 11/21/24 23:11 Completed Medical Decision Narrative: In summary, this patient is a 39-year-old male presenting to the Emergency Department for evaluation of low back pain and left foot pain without any known trauma. Differential diagnoses considered include but are not limited to lumbar radiculopathy, disc radiation, stress fracture, cauda equina syndrome, spinal cord compression, gouty arthritis. Ruling out the most morbid conditions drove assessment. It should be noted patient's history includes obesity, degenerative disc disease, which are not at goal therapy. This complicates all aspects of care by increasing patient's risk for morbidity. On exam, the patient is lying in bed in no acute distress. I do not have any concerns for infection based on clinical exam, and he also has great pulses and capillary refill in his left foot some not concern for arterial occlusion or ischemia. I also do not have any concerns for cauda equina syndrome or spinal cord compression because he has no alarm findings/history and is neurologically intact in his lower extremities. I feel his current presentation is most likely consistent with lumbar radiculopathy. Workup included CT lumbar spine, urinalysis, x-rays of the left foot. Patient was given oral Tylenol, IM Toradol, oral Robaxin for symptomatic improvement. Patient care signed out the oncoming provider, Dr. [place], pending workup and disposition. On reassessment patient remains stable. No evidence of fracture or dislocation on x-ray of the foot. Urine shows no evidence of stone or infection. CT lumbar spine does show some degenerative disc disease but nothing concerning for significant canal stenosis or left-sided pathology. Patient's left foot pain seems most likely an overuse injury from recent exertion at work/residual sensitivity from prior surgery. These findings were communicated patient and he is discharged in stable condition with prescription for Robaxin, lidocaine patches and return precautions. Critical Care <Bhargavi Thomas, DO - Last Filed: 11/21/24 23:11> Critical Care Time Critical Care Time: No
[2024-11-21] MEDS: KETOROLAC 30MG/ML VIAL 30 MG IM (22:50)
[2024-11-21] MEDS: METHOCARBAMOL 500MG TABLET 500 MG PO (22:50)
[2024-11-21] MEDS: ACETAMINOPHEN 500MG TAB 1000 MG PO (22:50)
[2024-11-21 23:00] VITALS: BP 155/98; PULSE 75; O2SAT 98
[2024-11-21 23:16] LABS: Microscopic, Urine URINE MICROSCOPIC (MICROSCOPIC)
[2024-11-21 23:23] LABS: Appearance,Urine CLEAR (Clear); Bilirubin,Urine Negative (Negative); Blood, Urine Negative (Negative); Color,Urine YELLOW (Yellow); Glucose,Urine (UA) Negative (Negative); Ketones,Urine Negative (Negative); Leukocyte Esterase,Urine Negative (Negative); Nitrate,Urine Negative (Negative); PH,Urine 6.5 (5.0-8.5); Protein,Urine Negative (Negative); Specific Gravity, Urine 1.025 (1.005-1.030); Urobilinogen,Urine 0.2 EU/dl (0.2)
[2024-11-21 23:47] LABS: Bacteria,Urine Trace /lpf; Mucus,Urine 1+ /lpf; Squamous Epithelial Cell,Urine Occasional #/hpf (0-5); WBC,Urine Occasional #/hpf (0-3)
[2024-11-21] MEDS: LIDOCAINE 5% TRANSDERMAL PATCH 1 EACH TP (23:55)
[2024-11-21 23:56] VITALS: BP 174/97; PULSE 74; RESP 18; TEMP 36.9; O2SAT 96
== END 2024-11-22 00:02 | disposition home or self-care (01) ==
PROVIDERS: Emergency Medicine; Emergency Provider Emergency Medicine; PCP Internal Medicine Adolescent Medicine
DX: M79.672 Pain in left foot (principal); M54.50 Low back pain, unspecified; M54.16 Radiculopathy, lumbar region; M72.2 Plantar fascial fibromatosis
CPT/HCPCS: 72131; 73630; 81001; 96372; 99284; J1885

== ENCOUNTER 2025-04-14 14:57 | Outpatient (CLI) | payer OTHER, SELFPAY ==
--- NOTE | 2025-04-14 15:00 | XR_ITS ---
FINAL REPORT TECHNIQUE: 5 views CLINICAL HISTORY: . Low back pain COMPARISON: 07/15/2019 FINDINGS: There is no fracture present. There is no malalignment. There are no significant degenerative changes. There is minimal S-shaped scoliosis. IMPRESSION: No acute process. Reviewed, Interpreted and Dictated by Micki Blanc MD Transcribed by Yoko Perry Authenticated and [facility]
--- NOTE | 2025-04-14 15:00 | XR_ITS ---
FINAL REPORT CLINICAL HISTORY: LBP AND RT HIP PAIN FINDINGS: RIGHT HIP Three views were obtained. There is no fracture or dislocation. The joint spaces appear normal. No soft tissue abnormality is identified. IMPRESSION: No acute process. Reviewed, Interpreted and Dictated by Micki Blanc MD Transcribed by Yoko Perry Authenticated and [facility]
--- OUTSIDE RECORDS SUMMARY | 2025-04-14 15:00 | XMS_ITS | Encounter Summary ---
Author Organization Healthcare Address [address] [place] [address] Care Team Providers Care Career Information Specialist Name Role Phone David Edgar MD Primary Care Provider [phone] Encounter Details Date Type Department Care Team (Late st Contact Info) Description 04/11/2025 Telephone [facility] Room E214 [address] [place] [address] Luma Ponce [facility] [place] [id number] Social History Tobacco Use Types Packs/Day Years Used Date Smoking Tobacco: Never Alcohol Use Standard Drinks/Week Comments No 0 (1 standard drink = 0.6 oz pur e alcohol) Sex and Gender Information Value Date Recorded Sex Assigned at Not on file Legal Sex Male 8:30 PM EDT Gender Identity Not on file Sexual Orientation Not on file documented as of this encounter Miscellaneous Notes * Telephone Encounter - Luma Ponce - 04/11/2025 4:51 PM EDT Phone call complete documented in this encounter Plan of Treatment Not on file documented as of this encounter Visit Diagnoses Not on filedocumented in this encounter Care Teams Career Information Specialist Relationship Specialty Start Date End Date David Edgar MD [address] [place] [address] PCP - General 03/05/21 documented as of this encounter
--- OUTSIDE RECORDS SUMMARY | 2025-04-14 15:00 | XMS_ITS | Encounter Summary ---
Author Organization Healthcare Address [address] [place] [address] Care Team Providers Care Color Strainer Name Role Phone David Edgar MD Primary Care Provider [phone] Reason for Referral * Consultation (Routine) - Authorized Specialty Diagnoses / Procedures Referred By Alfredito cope Referred To Contact Dental Nutrition Representative / Pain Medicine Diagnoses KIRILL (obstructive sleep apnea) Meg Gleason APRN [address] [address] Phone: tel: fax: [facility] Room [address] [place] [address] Phone: tel: fax: Referral ID Status Reason Start Date Expiration Date Visits Requested Visits Authorized [id number] Authorized Specialty Services Required 11/02/2024 05/04/2026 1 1 Encounter Details Date Type Department Care Team (Late st Contact Info) Description 11/02/2024 Community Orders Community [facility] [address] [place] [address] eMg Gleason APRN [address] [address] KIRILL (obstructive sleep apnea) (Primary Dx) Social History Tobacco Use Types Packs/Day Years Used Date Smoking Tobacco: Never Alcohol Use Standard Drinks/Week Comments No 0 (1 standard drink = 0.6 oz pur e alcohol) Sex and Gender Information Value Date Recorded Sex Assigned at Not on file Legal Sex Male 8:30 PM EDT Gender Identity Not on file Sexual Orientation Not on file documented as of this encounter Plan of Treatment Scheduled Referrals Name Type Priority Associated Diagnoses Order Schedule Ambulatory referral to Dentistry Outpatient Referral Routine KIRILL (obstructive sleep apnea) Ordered: 11/02/2024 documented as of this encounter Visit Diagnoses Diagnosis KIRILL (obstructive sleep apnea)- Primary Obstructive sleep apnea (adult) (pediatric) documented in this encounter Care Teams Color Strainer Relationship Specialty Start Date End Date David Edgar MD [address] [place] [address] PCP - General 03/05/21 documented as of this encounter
--- OUTSIDE RECORDS SUMMARY | 2025-04-14 15:00 | XMS_ITS | Data Portability ---
Author Organization [facility] CORINNA Jeong [place] [facility] Address [address] [facility] [address] [place] [address] Care Team Providers Care Dope Heater Name Role Phone WES LAINEZ Primary Care Provider WES LAINEZ Referring Provider Assessment Encounter Date Assessment Date Assessment LastModified by Organization Details LastModified Time 08/21/2019 08/21/2019 Mr. Solorio is a 34-year-old gentleman with right-sided L4 and L5 radiculopathy and back pain. I have personally reviewed the MRI of his lumbar spine shows multilevel mild degenerative changes worse at the L4-5 level where he is a large right-sided disc rotation causing lateral recess stenosis and neuroforaminal stenosis with nerve compression. History of multiple conservative treatments agreeing time, exercise, oral medications with no significant improvement of the symptoms. I recommend against any further physical therapy given the progression of his symptoms and onset of bladder and, as for the past 3-4 days. I will also order an MRI of the lumbar spine today given that his bladder, cisterna since his last MRI. He is a candidate for decompression. I have discussed with the patient a right L4-5 lumbar microdiscectomy using a spine model as well as the risks and benefits of surgery, and he elects to proceed with surgery. [email or web address] Not available 08/21/2019 11:47:18 09/09/2019 09/09/2019 Routine wound check s/p RIGHT L4-5 LMD 08/26/19. Removed the steri strips. Incision healed nicely. [email or web address] Not available 09/09/2019 10:10:01 09/25/2019 09/25/2019 Postoperative right L4-5 discectomy on 08/26/2019. Dr. Chacon discussed with him that his right leg discomfort should continue to improve. We will provide him with a return to work note with no lifting over 20 pounds and no ladder work for 1 month. In 1 month he may return to his normal activities. He understands to call with any questions or concerns. Seen by Dr. Chacon and myself. Follow-up as needed. [email or web address] Not available 09/25/2019 09:46:38 Plan of Treatment Reminders Order Date Submit Date Provider Last Modified By Organization Details Last Modified Time Details Appointments None record ed. Lab None record ed. Referral None record ed. Procedures None record ed. Surgeries None record ed. Imaging None record ed. Medication Orders None record ed. Patient TargetsNo targets recorded. Patient InstructionsNo instructions recorded. Reason for Referral None Reported. Results Created Date Observation Date Name Description Value Unit Range Abnormal Flag Note LastModifiedBy Organization Detail LastModifiedTime 08/26/2008/26/2019 [facility] surgical SEE BELOW Depar tment of Patho logy [facility] Path[facility] Repor t NAME: MAYTE MCKEON Sean PATH. :[id number] Copy to: Diagn osis: Lumba r disc mater ial: Fibro us conne ctive tissu e and elast ic and fibro carti donald with degen erati ve [place] es, consi stent with herni ated inter verte bral disc mater ial. SOURC E OF SPECI MEN: DISC MATER IAL , LUMBA R CLINI ANTOLIN INFOR MATIO N: HNP Gross Descr iptio n: Recei angeli in forma kandice label ed with the patie nt's name and desig nated lumb ar disc mater ial are multi ple irreg ular fragm ents of pink- huang fibro carti lagin ous soft tissu e which have aggre gate dimen sions of 1.8 x 1.8 x 0.2 cm. Repre senta tive secti ons are submi tted in a singl e casse tte. SOHAIL 08/26 02:27 PM Micro scopi c Descr iptio n: A micro scopi c exami natio n has been perfo rmed. HECTOR Estrada MD Haydee d Out Date: 08/27 15:24 Page 1 of 1 Not Available [facility] [address] [facility], [place], [address], 08/27/2019 15:25:36 08/19/20 19 07/26/2019 MRI, lumba r spine , w/o contr ast No observ ation record ed. [facility] (X-Ray) [address], [place], [address], 08/19/2019 13:56:46 08/26/2008/23/2019 MRI, lumba r spine , w/o contr ast [facility] [address] [place] [address] Patien t Name: TERRI MENDEZ Patien t : [birth year] Patien t 49 Orderi ng Provid er: YUSUF CHACON JR EXAM DATE: 2018 EXAM: MR LUMBAR W/O CONTRA ST HISTOR Y: Back pain COMPAR JATIN: None. FINDIN GS: Mild broad scolio sis of the upper lumbar spine convex to the right of 5 degree s. There is no sublux ation presen t. There is no eviden ce of fractu re. There is mild anteri or margin al osteop hytic spurri ng. No pathol ogic lesion is identi fied in the lumbar spine. The conus medull shree is normal in appear ance at the L1-L2 level. T12-L1 throug h L2-3: These interv ertebr al discs are essent ially normal in appear ance. L3-L4: There is a mild disc bulge. There is no centra l canal stenos is. There is no neural forami nal stenos is. L4-L5: There is an HNP parace ntral to the right which appear s to relate extrus ion of the disc. This create s right latera l recess stenos is. There is mild narrow ing of the neural forami na bilate rally. L5-S1: There is a mild disc bulge and mild endpla te spurri ng. There is no centra l canal stenos is. There is minima l neural forami nal stenos is. IMPRES KAMAR: 1. Degene rative disc diseas e is presen t clearl y most conspi cuous at L4-5 with a parace ntral HNP to the right Interp reted By: Anatoly Locke MD [facility] onical ly Signed By: Anatoly Locke MD on 8:09 AM [email or web address] [facility] [address], [address], 08/26/2019 10:00:37 Result Notes Documentation Provider Name and Address Organization Details Recorded Time Mri, Lumbar Spine, W/o Contrast : [address] [address] Patient Name: TERRI SOLORIO Patient : 1985 Patient Ordering Provider: YUSUF CHACON JR EXAM DATE: 08/23/2019 EXAM: MR LUMBAR W/O CONTRAST HISTORY: Back pain COMPARISON: None. FINDINGS: Mild broad scoliosis of the upper lumbar spine convex to the right of 5 degrees. There is no subluxation present. There is no evidence of fracture. There is mild anterior marginal osteophytic spurring. No pathologic lesion is identified in the lumbar spine. The conus medullaris is normal in appearance at the L1-L2 level. T12-L1 through L2-3: These intervertebral discs are essentially normal in appearance. L3-L4: There is a mild disc bulge. There is no central canal stenosis. There is no neural foraminal stenosis. L4-L5: There is an HNP paracentral to the right which appears to relate extrusion of the disc. This creates right lateral recess stenosis. There is mild narrowing of the neural foramina bilaterally. L5-S1: There is a mild disc bulge and mild endplate spurring. There is no central canal stenosis. There is minimal neural foraminal stenosis. IMPRESSION: 1. Degenerative disc disease is present clearly most conspicuous at L4-5 with a paracentral HNP to the right Interpreted By: Anatoly Locke MD F CHACON JR, MD [address] [place] [address], [phone], [facility] 08/26/2019 10:00:37 Procedures Surgical History Date Name Laterality Status Provider Name and Address Organization Details Recorded Time 9 [facility] 09:28:12 open reduction of fracture with internal fixation completed [facility] 08/21/2019 11:03:48 Ankle arthroscopy/pascual lashawn completed [facility] 08/21/2019 11:04:19 nasal septoplasty completed [facility] 08/21/2019 11:04:40 Morris Teeth Extraction completed [facility] 08/21/2019 11:04:48 Imaging Results None recorded. Procedure Notes None recorded. Medical Equipment None Reported. Allergies Allergen ID Allergen Name Allergen Category Reaction Reaction Severity Criticality Documentation Date Start Date Code Code System Note Provider Name and Address Organization Details Recorded Time 326129 morphine medicatio n Not available Not available Not available 08/21/2019 7052 RxNorm Alaina Hurtado [facility] 9 11:00:56 821871 acetamino phen / hydrocodo ne medicatio n Not available Not available Not available 08/21/2019 26802 2 RxNorm Alaina Hurtado [facility] 9 11:01:05 134687 Product containin g penicilli n (product) medicatio n Not available Not available Not available 08/21/2019 32682 8001 SNOMED Alaina Hurtado [facility] 9 11:01:10 846329 clindamyc in Not available Not available Not available Not available 08/21/2019 2582 RxNorm Alaina Hurtado [facility] 9 11:01:16 249387 Bactroban medicatio n Not available Not available Not available 08/21/2019 73507 1 RxNorm Alaina Hurtado [facility] 9 11:01:22 988408 Substance with sulfonami de structure and antibacte rial mechanism of action (substanc e) medicatio n Not available Not available Not available 08/21/2019 33500 8003 SNOMED Alaina Hurtado [facility] 9 11:01:30 760375 Augmentin medicatio n Not available Not available Not available 08/21/2019 84891 2 RxNorm Alaina Hurtado [facility] 9 11:01:37 Medications Name Sig Start Date Stop Date Status Note LastModified by Organization Details LastModified Time Celebrex 200 mg capsule Take 1 capsule every day by oral route. active Not Available Not Available No t Available Robaxin 500 mg tablet Take 2 tablets 4 times a day by oral route. active Not Available Not Available No t Available Elgin 7.5 mg-325 mg tablet Take 1 tablet every 6 hours by oral route. 2018 active Not Available Not Available Not Avai lable Percocet 5 mg-325 mg tablet Take 1 tablet every 6 hours by oral route as needed. 2018 active Not Available Not Available Not Avai lable Lexapro 20 mg tablet Take 1 tablet every day by oral route. active Not Available Not Available No t Available cyclobenzapr ine 5 mg tablet Take 1 tablet 3 times a day by oral route as directed . 2018 active Not Available Not Available Not Avai lable Tylenol-Code ine #3 active Not Available Not Available Not Available prednisone 08/21 completed Not Available Not Available Not Available Medrol (Jarod) active Not Available Not Available Not Available Vitals Date Recorded Body height Body mass index (BMI) Body weight Systolic blood pressure Diastolic blood pressure Provider Name and Address Organization Details Last Updated DateTime 08/21/2019 177.8 cm 33 kg/m2 183587.2 5 g 120 mm[Hg] 90 mm[Hg] Alaina Hurtado [facility] 9 11:00:47 Date Recorded Body height Body mass index (BMI) Body weight Systolic blood pressure Diastolic blood pressure Provider Name and Address Organization Details Last Updated DateTime 09/25/2019 177.8 cm 33 kg/m2 713453.2 5 g 124 mm[Hg] 84 mm[Hg] Alaina Hurtado [facility] 9 09:27:45 Social History None recorded. Functional Status None recorded. Mental Status None recorded. Family History Nothing Reported. Medical History Condition Response Asthma Y High Cholesterol Y Hypertension Y Past Encounters Encounter ID Performer Location Encounter Start Date Encounter Closed Date Diagnosis/Indication Diagnosis SNOMED-CT Code Diagnosis ICD10 Code Diagnosis Note [id number] YUSUF CHACON JR, MD [facility] [address] [place] [address] 08/21/2019 10:24:07 08/21/2019 14:34:15 Herniation of lumbar intervertebral disc with sciatica 8129659101 51829 M51.16 [id number] YUSUF CHACON JR, MD SURGERY SCHEDULE [address] [place] [address] 08/26/2019 08:11:25 08/26/2019 08:12:54 [id number] YUSUF CHACON JR, MD [facility] [address] [place] [address] 09/09/2019 09:50:40 09/09/2019 10:10:20 [id number] HUMAIRA JARVIS PA-C [facility] [address] [place] [address] 09/25/2019 09:17:31 09/25/2019 11:27:26 Prolapsed lumbar intervertebral disc 438587238 M51.26 Health Concerns Section Related Observation LastModified by Organization Detai ls LastModified Time None Recorded Concern Status LastModified by Organization Details LastModified Time None Recorded Advance Directives Directive None Recorded Payers Insurance Date Sequence Insurance Name Policy Number Policy Mark Covered Member ID Mark Member ID Guarantor Name 04/12/2021 1 [place] [id number] 1 Terri Solorio [id number] Terri Solorio 01/28/2022 PAYMENT PLAN Terri Day Trudy Notes Date Note Type Note Provider Name and Address Organization Details Recorded Time 08/21/2019 text/html I am seeing Mr. Solorio in consultation at the request of Dr. Lainez for evaluation of low back pain. Mr. Solorio is a 34-year-old gentleman who slipped in May off of his boat breaking ribs landing on his bottom with severe back pain and right leg pain after. He rates his pain as an 8 out of 10, describes as a deep ache with spasms in his back with sharp, shooting, stabbing pain down the right leg into the foot. The pain is constant, and has been getting worse over the past month. His symptoms are worse with any activity, bending, twisting, or lifting and better with relaxing. He gets improvement when leaning to the left. He has associated numbness, tingling, weakness in the leg. For the past 3 days he has developed bladder incontinence where he feels that he has emptied his bladder but he stands up he has continued urination. He is tried massage, oral steroids, oral nonsteroidal medications, narcotic pain medications with no sniff improvement of the symptoms. YUSUF CHACON JR, MD [address] [place], [address], [facility] 08/21/2019 11:47:27 09/25/2019 text/html Mr. Solorio is status post right L4-5 discectomy on 08/26/[address] Chacon. He reports good improvement in his right leg pain. He continues to have some aching in the right leg as well as the right hip, but is much better than it was preop. 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 He reports that his job does not involve much heavy lifting. He feels ready to return to work. HUMAIRA JARVIS PA-C [facility] [place], [address], [facility] 09/25/2019 09:47:00
--- OUTSIDE RECORDS SUMMARY | 2025-04-14 15:00 | XMS_ITS | Clinical Summary ---
Author Organization Healthcare Address [address] [place] [address] Care Team Providers Care Variety Performer Name Role Phone David Edgar MD Primary Care Provider [phone] Encounters Date Type Department Care Team Description 04/11/2025 Telephone [facility] Room E214 [address] [place] [address] Luma Ponce from Last 3 Months Social History Tobacco Use Types Packs/Day Years Used Date Smoking Tobacco: Never Alcohol Use Standard Drinks/Week Comments No 0 (1 standard drink = 0.6 oz pur e alcohol) Sex and Gender Information Value Date Recorded Sex Assigned at Not on file Legal Sex Male 8:30 PM EDT Gender Identity Not on file Sexual Orientation Not on file Last Filed Vital Signs Vital Sign Reading Time Taken Comments Blood Pressure 164/109 05/13/2022 11:10 AM EDT Pulse 88 05/13/2022 11:10 AM EDT Temperature 37.1 C (98.7 F) 05/13/2022 11:10 AM EDT Respiratory Rate 20 05/13/2022 11:10 AM EDT Oxygen Saturation 97% 05/13/2022 11:10 AM EDT RA Inhaled Oxygen Concentration - - Weight 105 kg (231 lb 0.7 oz) 08/16/2019 2:22 PM EDT Height 177.8 cm (5' 10 ) 08/16/2019 2:22 PM EDT Body Mass Index 33.15 08/16/2019 2:22 PM EDT Plan of Treatment Health Maintenance Due Date Last Done Comments [facility]-Depression Screening 1985 [facility]-HIV Screening 1985 [facility]-Hepatitis C Screening 1985 [facility]-/Child/Adol SDOH Screenings 1985 [facility]-Varicella Vaccines (1 of 2 - 13+ 2-dose series) 1998 HPV Vaccines (1 - Male 3-dose series) 02/28/2000 [facility]- SDOH Screenings 2003 [facility]-Adult SDOH Screenings 2003 [facility]-DTaP,Tdap,and Td Vaccines (1 - Tdap) 02/28/2004 [facility]-Hepatitis B Vaccines (1 of 3 - 19+ 3-dose series) 02/28/2004 AIN-FDNQC-18 Vaccine (4 - season) 2024 09/22/2021, 12/01/2020, 11/02/2020 [facility]-Influenza Vaccine (Season Ended) 2025 07/25/2017 [facility]-Zoster Vaccines (1 of 2) 2035 [facility]-HIB Vaccines Aged Out No longer e ligible based on patient's age to complete this topic [facility]-Hepatitis A Vaccines Aged Out No longer eligible based on patient's age to complete this topic [facility]-IPV Vaccines Aged Out No longer e ligible based on patient's age to complete this topic [facility]-Pneumococcal Vaccine: Pediatrics (0 to 5 Years) and At-Risk Patients (6 to 49 Years) Aged Out No longer eligible b ased on patient's age to complete this topic [facility]-Rotavirus Vaccines Aged Out No lo nger eligible based on patient's age to complete this topic Insurance [facility] Care Teams Variety Performer Relationship Specialty Start Date End Date David Edgar MD [address] [place] [address] PCP - General 03/05/21
--- OUTSIDE RECORDS SUMMARY | 2025-04-14 15:00 | XMS_ITS | Clinical Summary ---
Author Organization [facility] Guardados[facility] Grissom [facility] Address [address] [place] [address] Care Team Providers Care Program Eligibility Specialist Name Role Phone David Edgar MD Primary Care Provider [phone] Allergies Active Allergy Reactions Criticality Noted Date Comments Amoxicillin Rash Low 05/13/2022 Sulfamethoxazole-Trimethoprim Rash Low 2021 Morphine Rash Low 05/13/2022 Penicillins Rash Low 05/13/2022 Vancomycin Rash Low 05/13/2022 Medications losartan (COZAAR) 50 MG tablet Take 50 mg by mouth in the morning. Active buPROPion (WELLBUTRIN XL) 150 MG extended release tablet Take 150 mg by mouth every morning Active Immunizations Immunization Administration Dates Next Due TDaP, ADACEL (age 10y-64y), BOOSTRIX (age 10y+), IM, 0.5mL 05/13/2022 Social History Tobacco Use Types Packs/Day Years Used Date Smoking Tobacco: Never Smokeless Tobacco: Never Tobacco Cessation:Counseling Given: Not Answered Sex and Gender Information Value Date Recorded Sex Assigned at Not on file Legal Sex Male 10:28 AM EDT Gender Identity Not on file Sexual Orientation Not on file Last Filed Vital Signs Vital Sign Reading Time Taken Comments Blood Pressure 140/100 05/13/2022 12:43 PM EDT Pulse 88 05/13/2022 10:33 AM EDT Temperature 36.9 C (98.4 F) 05/13/2022 12:50 PM EDT Respiratory Rate 20 05/13/2022 10:33 AM EDT Oxygen Saturation 97% 05/13/2022 12:43 PM EDT Inhaled Oxygen Concentration - - Weight 111.1 kg (245 lb) 05/13/2022 10:33 AM EDT Height 177.8 cm (5' 10 ) 05/13/2022 10:33 AM EDT Body Mass Index 35.15 05/13/2022 10:33 AM EDT Plan of Treatment Health Maintenance Due Date Last Done Comments Depression Screen 1997 Varicella vaccine (1 of 2 - 13+ 2-dose series) 1998 HIV screen 02/28/2000 Hepatitis C screen 2003 Hepatitis B vaccine (1 of 3 - 19+ 3-dose series) 02/28/2004 COVID-19 Vaccine (2023-2 5 season) 2024 Lipids 2025 Flu vaccine (Season Ended) 2025 DTaP/Tdap/Td vaccine (2 - Td or Tdap) 05/13/2032 05/13/2022 HPV vaccine Aged Out No longer eligi ble based on patient's age to complete this topic Hepatitis A vaccine Aged Out No longe r eligible based on patient's age to complete this topic Hib vaccine Aged Out No longer eligi ble based on patient's age to complete this topic Meningococcal (ACWY) vaccine Aged Out No longer eligible based on patient's age to complete this topic Meningococcal B vaccine Aged Out No l onger eligible based on patient's age to complete this topic Pneumococcal 0-49 years Vaccine Aged Out No longer eligible based on patient's age to complete this topic Polio vaccine Aged Out No longer elig ible based on patient's age to complete this topic Insurance * Guarantor: Terri Solorio Account Type Relation to Patient Date of Phone Billing Address Personal/Family Self 1985 [address] [place] [address] [facility] Care Teams Program Eligibility Specialist Relationship Specialty Start Date End Date David Edgar MD [address] [place] [address] PCP - General Internal Medicine 05/13/22
== END 2025-04-14 23:59 | disposition home or self-care (01) ==
LOC: RAD 14:57
PROVIDERS: PCP Internal Medicine Adolescent Medicine; Visit Provider Nurse Practitioner Family
DX: M25.551 Pain in right hip (principal); M54.50 Low back pain, unspecified
CPT/HCPCS: 72110; 73502

== ENCOUNTER 2025-05-06 21:05 | Emergency (ER) | payer OTHER, SELFPAY ==
--- OUTSIDE RECORDS SUMMARY | 2025-05-06 21:57 | XMS_ITS | Clinical Summary ---
Author Organization Healthcare Address [address] [place] [address] Care Team Providers Care Digital Communications Manager Name Role Phone David Edgar MD Primary Care Provider [phone] Encounters Date Type Department Care Team Description 04/11/2025 Telephone [facility] Room E214 [address] [place] [phone] Luma Ponce from Last 3 Months Social [...] of 3 - 19+ 3-dose series) 02/28/2004 [id number] Vaccine (4 - season) 2024 09/22/2021, 12/01/2020, 11/02/2020 UKY-Influenza Vaccine (#1) 2025 07/25/2017 UKY-Zoster Vaccines (1 of 2) [...] patient's age to complete this topic Insurance [employer] [facility] Care Teams Digital Communications Manager Relationship Specialty Start Date End Date David Edgar MD [address] [place] [address] PCP - General 03/05/21
--- OUTSIDE RECORDS SUMMARY | 2025-05-06 21:57 | XMS_ITS | Clinical Summary ---
Author Organization [facility] Address [address] [place] [address] Care Team Providers Care Special Officer Name Role Phone David Edgar MD Primary Care Provider [phone] Allergies Active Allergy Reactions Criticality Noted Date [...] - 19+ 3-dose series) 02/28/2004 COVID-19 Vaccine ( - 2023-2 5 season) 2024 Lipids 2025 Flu vaccine (#1) 05/23/2025 DTaP/Tdap/Td vaccine (2 - Td or Tdap) [...] patient's age to complete this topic Insurance [facility] Care Teams Special Officer Relationship Specialty Start Date End Date David Edgar MD [address] [place] [address] PCP - General Internal Medicine 05/13/22
--- OUTSIDE RECORDS SUMMARY | 2025-05-06 21:57 | XMS_ITS | Data Portability ---
Author Organization [facility] CORINNA Jeong [facility] Address [address] [facility] [address] [place] [address] Care Team Providers Care Trapper Animal Name Role Phone WES LAINEZ Primary Care Provider WES LAINEZ Referring Provider [phone] Assessment Encounter Date Assessment Date Assessment LastModified [...] and he elects to proceed with surgery. [email or web address] Not available 08/21/2019 11:47:18 09/09/2019 09/09/2019 Routine [...] Flag Note LastModifiedBy Organization Detail LastModifiedTime 08/26/2008/26/[facility] SEE BELOW Depar tment of Patho logy [facility] Repor t NAME: MAYTE [...] 15:24 Page 1 of 1 Not Available [facility] [address], [place], [address], 08/27/2019 15:25:36 08/19/20 19 07/26/2019 MRI, lumba r spine , w/o contr ast No observ ation record ed. [facility] (X-Ray) [address], [place], [address], 08/19/2019 13:56:46 08/26/2008/23/2019 MRI, lumba r spine , w/o contr ast [facility] [address] [facility] [place] [address] Patien t Name: TERRI MENDEZ Patien t [...] right Interp reted By: Anatoly Locke MD [facility] onical ly Signed By: Anatoly Locke MD on 8:09 AM [email or web address] [facility] [address], [address], 08/26/2019 10:00:37 Result Notes Documentation Provider Name and Address Organization Details Recorded Time Mri, Lumbar Spine, W/o Contrast : [address] [address] Patient Name: TERRI SOLORIO Patient : 1985 [...] Anatoly Locke MD F CHACON JR, MD [address] [place] [address], [address], [facility] 08/26/2019 10:00:37 Procedures Surgical History Date Name Laterality Status Provider Name and Address Organization Details Recorded Time 9 [facility] 09:28:12 open reduction of fracture with internal fixation completed Alaina [facility] 08/21/2019 11:03:48 Ankle arthroscopy/pascual lashawn completed [facility] 08/21/2019 11:04:19 nasal septoplasty completed [facility] 08/21/2019 11:04:40 Earle Teeth Extraction completed [facility] 08/21/2019 11:04:48 Imaging Results None recorded. Procedure Notes None recorded. Medical Equipment None Reported. Allergies Allergen ID Allergen Name Allergen Category Reaction Reaction Severity Criticality Documentation Date Start Date Code Code System Note Provider Name and Address Organization Details Recorded Time 675545 morphine medicatio n Not available Not available Not available 08/21/2019 7052 RxNorm Alaina Hurtado [facility] 9 11:00:56 119020 acetamino phen / hydrocodo ne medicatio n Not available Not available Not available 08/21/2019 92316 2 RxNorm Alaina Hurtado [facility] 9 11:01:05 442876 Product containin g penicilli n (product) medicatio n Not available Not available Not available 08/21/2019 33558 8001 SNOMED Alaina Hurtado [facility] 9 11:01:10 786584 clindamyc in Not available Not available Not available Not available 08/21/2019 2582 RxNorm Alaina Hurtado [facility] 9 11:01:16 666032 Bactroban medicatio n Not available Not available Not available 08/21/2019 87499 1 RxNorm Alaina Hurtado [facility] 9 11:01:22 561984 Substance with sulfonami de structure and antibacte rial mechanism of action (substanc e) medicatio n Not available Not available Not available 08/21/2019 34866 8003 SNOMED Alaina Hurtado [facility] 9 11:01:30 578562 Augmentin medicatio n Not available Not available Not available 08/21/2019 07572 2 RxNorm Alaina Hurtado [facility] 9 11:01:37 Medications Name Sig Start Date Stop Date Status Note LastModified by Organization Details LastModified Time Celebrex 200 mg capsule Take 1 capsule every day by oral route. active Not Available Not Available No t Available Robaxin 500 mg tablet Take 2 tablets 4 times a day by oral route. active Not Available Not Available No t Available Boaz 7.5 mg-325 mg tablet Take 1 tablet [...] Body mass index (BMI) Body weight Systolic And Diastolic Provider Name and Address Organization Details Last Updated DateTime 08/21/2019 177.8 cm 33 kg/m2 859976.25 g 120/90 mm[Hg] Alaina Hurtado [facility] 08/21/2019 11:00:47 Date Recorded Body height Body mass index (BMI) Body weight Systolic And Diastolic Provider Name and Address Organization Details Last Updated DateTime 09/25/2019 177.8 cm 33 kg/m2 893276.25 g 124/84 mm[Hg] Alaina Hurtado [facility] 09/25/2019 09:27:45 Social History None recorded. Functional Status None recorded. Mental Status None recorded. Family History Nothing Reported. Medical History Condition Response Hypertension Y Asthma Y High Cholesterol Y Past Encounters Encounter ID Performer Location Encounter Start Date Encounter Closed Date Diagnosis/Indication Diagnosis SNOMED-CT Code Diagnosis ICD10 Code Diagnosis Note [id number] YUSUF CHACON JR, MD [facility] [address] [place] [address] 08/21/2019 10:24:07 08/21/2019 14:34:15 Herniation of lumbar intervertebral disc with sciatica 5347698279 39776 M51.16 [id number] YUSUF CHACON JR, MD SURGERY SCHEDULE [address] [place] [address] 08/26/2019 08:11:25 08/26/2019 08:12:54 [id number] YUSUF CHACON JR, MD [facility] [address] [place] [address] 09/09/2019 09:50:40 09/09/2019 10:10:20 [id number] HUMAIRA JARVIS PA-C [facility] [address] [place] [address] 09/25/2019 09:17:31 09/25/2019 11:27:26 Prolapsed lumbar intervertebral disc 446055251 M51.26 Health Concerns Section Related Observation LastModified by Organization Detai ls LastModified Time None Recorded Concern Status LastModified by Organization Details LastModified Time None Recorded Advance Directives Directive None Recorded Payers Insurance Date Sequence Insurance Name Policy Number Policy Mark Covered Member ID Mark Member ID Guarantor Name 04/12/2021 1 [place] [id number] 1 Terri Solorio [id number] Terri Solorio 01/28/2022 PAYMENT PLAN Terri Solorio Notes Date Note Type Note Provider Name [...] of the symptoms. YUSUF CHACON JR, MD [address] [place], [address], [facility] 08/21/2019 11:47:27 09/25/2019 text/html Mr. Solorio is status post right L4-5 discectomy on 08/26/[address] Chacon. He reports good improvement in his right leg pain. He continues to have some aching in the right leg as well as the right hip, but is much better than it was preop. 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 He reports that his job does not involve much heavy lifting. He feels ready to return to work. HUMAIRA JARVIS PA-C [address] [place] [address], [phone], [facility] 09/25/2019 09:47:00
--- OUTSIDE RECORDS SUMMARY | 2025-05-06 21:57 | XMS_ITS | Encounter Summary ---
Author Organization Healthcare Address [address] [place] [address] Care Team Providers Care Direct Marketing Manager Name Role Phone David Edgar MD Primary Care Provider [phone] Encounter Details Date Type Department Care Team (Late st Contact Info) Description 04/11/2025 Telephone [facility] Room E214 [address] [place] [address] Luma Ponce [facility] [place] [phone] Social History Tobacco Use Types Packs/Day Years [...] on filedocumented in this encounter Care Teams Direct Marketing Manager Relationship Specialty Start Date End Date David Edgar MD [address] [place] [address] PCP - General 03/05/21 documented as of this encounter
--- OUTSIDE RECORDS SUMMARY | 2025-05-06 21:57 | XMS_ITS | Encounter Summary ---
Author Organization Healthcare Address [address] [place] [address] Care Team Providers Care Cord Cutter Name Role Phone David Edgar MD Primary Care Provider [phone] Reason for Referral * Consultation (Routine) - Authorized Specialty Diagnoses / Procedures Referred By Alfredito cope Referred To Contact Dental Dermatology Teacher / Pain Medicine Diagnoses KIRILL (obstructive sleep apnea) Meg Gleason APRN [address] [address] Phone: tel: fax: [place] [facility] Room E214 [address] [place] [address] Phone: tel: fax: Referral ID Status Reason Start Date Expiration Date Visits Requested Visits Authorized [id number] Authorized Specialty Services Required 11/02/2024 05/04/2026 1 1 Encounter Details Date Type Department Care Team (Late st Contact Info) Description 11/02/2024 Community Orders Community Practice [address] [place] [address] Meg Gleason APRN [address] [address] KIRILL (obstructive sleep apnea) (Primary [...] (pediatric) documented in this encounter Care Teams Cord Cutter Relationship Specialty Start Date End Date David Edgar MD [address] [place] [address] PCP - General 03/05/21 documented as of this encounter
[2025-05-06 22:02] VITALS: BP 158/110; PULSE 87; RESP 19; TEMP 36.9; O2SAT 99; BMI 34.8
--- NOTE | 2025-05-06 22:56 | HMH.EDGENADL ---
Discharge Plan Disposition Patient Disposition: Home, Self-Care Prescriptions Prescriptions: New cyclobenzaprine 10 mg tablet 10 mg PO TID PRN (Reason: muscle spasm) 5 Days Qty: 15 0RF lidocaine 4 % adhesive patch,medicated 1 patch topical DAILY Qty: 5 0RF Rx Instructions: may leave on for up to 12 hrs ibuprofen 800 mg tablet 800 mg PO TID PRN (Reason: pain) 7 Days Qty: 20 0RF prednisone 50 mg tablet 50 mg PO DAILY 5 Days Qty: 5 0RF Rx Instructions: Please begin 1 day after ED visit No Action carvedilol 12.5 mg tablet 12.5 mg PO Q12H Rx Instructions: must administer with a meal/food rosuvastatin 5 mg tablet 5 mg PO Patient Comments: TAKE ONE TABLET BY MOUTH EVERY NIGHT sertraline 50 mg tablet 50 mg PO DAILY Patient Comments: TAKE ONE TABLET BY MOUTH EVERY DAY benzonatate [benzonatate] 100 mg capsule 100 mg PO TIDP PRN (Reason: Cough) Qty: 30 0RF methocarbamol 500 mg tablet 500 mg PO Q6H PRN (Reason: pain) Qty: 30 0RF omeprazole 40 MG capsule,delayed release(DR/EC) 40 mg PO DAILY losartan 100 MG tablet 100 mg PO DAILY tamsulosin 0.4 mg capsule 0.4 mg PO DAILY Qty: 14 0RF Referrals Follow up/Referrals: David Edgar MD [Primary Care Provider, Internal Medicine] - See instructions Activity Restrictions/Add. Instructions Additional Instructions/Restrictions: Your symptoms are consistent with sciatica on the right side most likely secondary to a herniated disc. No signs or symptoms of central COMMERCIAL ROOFER compression or cauda equina syndrome. Please return with symptoms that we discussed. I highly recommend that you get an outpatient MRI and follow-up with the spine surgeon given the duration of your current symptoms. Clinical Impressions Clinical Impression: Sciatica, right side Instructions Patient Instructions: DI for Low Back Pain Print Language Print Language: Danish Discharge ED Provider: Dieter Camargo General Adult HPI General Chief complaint: Back Pain/Injury Stated complaint: lower back and down right leg pain Time Seen by Provider: 05/06/25 22:46 Mode of Arrival: Ambulatory Source of Information: Patient Description of Symptoms (Recalled from ER Triage Doc. by RN): Right lower back pain and right leg pain for 8wks now, 3 weeks ago had xrays and was clear, given steroid pack and sent home, he states that it was not helpful at all and the only thing that helps him is resting. Hx of Kidney stones, prostate issues where he also had back pain. History of Present Illness HPI narrative: Patient is a 40-year-old male presenting today with 8 weeks of back pain. The right paraspinal area radiating down the posterior aspect of his right leg worsening with any type of extension of the leg. Denies any bowel or bladder incontinence urinary retention saddle anesthesia lower extremity paralysis history of fevers cancer injection drug use. Has a history of very similar complaint in the past where he had ultimately had to have an MRI and laminectomy by a spine surgeon in [place]. Went to his primary care doctor recently and had x-rays which were unremarkable but did not subsequently have an MRI or physical therapy. Related Data Home Medications ?Medication ?Instructions ?Recorded ?Confirmed omeprazole 40 mg capsule,delayed 40 mg PO DAILY GERD 02/07/21 04/16/25 release losartan 100 mg tablet 100 mg PO DAILY High blood pressure 01/10/22 04/16/25 carvedilol 12.5 mg tablet 12.5 mg PO Q12H 10/03/22 04/16/25 sertraline 50 mg tablet 50 mg PO DAILY 11/10/23 04/16/25 rosuvastatin 5 mg tablet 5 mg PO 04/16/25 04/16/25 Previous Rx's ?Medication ?Instructions ?Recorded tamsulosin 0.4 mg capsule 0.4 mg PO DAILY #14 caps 06/19/23 benzonatate 100 mg capsule 100 mg PO TIDP PRN Cough #30 caps 12/03/23 methocarbamol 500 mg tablet 500 mg PO Q6H PRN pain #30 tabs 11/21/24 cyclobenzaprine 10 mg tablet 10 mg PO TID PRN muscle spasm 5 05/06/25 days #15 tabs ibuprofen 800 mg tablet 800 mg PO TID PRN pain 7 days #20 05/06/25 tabs lidocaine 4 % topical patch 1 patch topical DAILY #5 ea 05/06/25 prednisone 50 mg tablet 50 mg PO DAILY 5 days #5 tabs 05/06/25 Allergies Allergy/AdvReac Type Severity Reaction Status Date / Time clindamycin Allergy Mild Rash Verified 04/16/25 13:38 mupirocin (From Bactroban) Allergy Mild Rash Verified 04/16/25 13:38 morphine (MORPHINE) Allergy Unknown Verified 04/16/25 13:38 sulfamethoxazole (From Allergy Unknown Verified 04/16/25 13:38 BACTRIM) trimethoprim (From BACTRIM) Allergy Unknown Verified 04/16/25 13:38 [facility] Disclaimer: The information contained in this section may have been updated after the patient was seen, as this information can be updated by other users. Medical History Foot pain, bilateral Social History Smoking Status: Never smoker second hand exposure: No alcohol intake: never substance use type: denies use current occupational status: employed Travel in the last 8 weeks?: None household members: spouse and children housing: house Have you lived/traveled outside US in past 30 days?: No Contact w/someone who lives/traveled outside US past 30 days?: No Exposure to someone with infectious disease in past 14 days?: No Do you have a fever (greater than 100.4 F or 38 C)?: No Have you tested positive for COVID-19?: No Exposed to someone with COVID-19 in past 14 days?: No Do you have a sore throat?: No Do you have a cough?: No Do you have any weakness?: No Do you have any diarrhea?: No Are you experiencing any unusual bleeding?: No Do you have any muscle aches/pain?: No Do you have any abdominal pain?: No Are you experiencing loss of taste or smell?: No Other Medical History Have you received the Flu Vaccine for this season: Yes Have you received the Pneumonia Vaccine: No ROS Obtained: Yes All systems reviewed & no additional complaints except as documented Physical Exam General General appearance: alert and in no apparent distress Respiratory Respiratory exam: Present normal lung sounds bilaterally Cardiovascular Cardiovascular exam: Present regular rate Back Exam Back exam: Present other (Patient has positive straight leg on the right has normal motor and neurovascular exam right lower extremity); Absent tenderness (No midline tenderness) Neurological Exam Neurological exam: Present alert Medical Decision Making Medical Records Screening: Per USPSTF and CDC recommendations, given the prevalence of disease in our region, it is our hospital?s policy to screen for HIV and viral Hepatitis for all patients aged 18 and over and those with ongoing risk factors. Ed Inquiry Pt receiving controlled substance: No Vital Signs: 05/06/25 22:02 Temperature 98.5 F Temperature Source Oral Pulse Rate [Left Radial] 87 Respiratory Rate 19 Blood Pressure [Right Arm] 158/110 H Blood Pressure Mean [Right Arm] 126 Blood Pressure Source [Right Arm] Automatic Cuff Blood Pressure Position [Right Arm] Supine 02 Sat by Pulse Oximetry 99 Oxygen Delivery Method Room Air Orders (Tests/Meds): ED MEDICATIONS Generic Name Dose Route Start Last Admin Trade Name Adonis PRN Reason Stop Dose Admin Cyclobenzaprine HCl 10 mg 05/06/25 22:53 Cyclobenzaprine 10mg Tablet PO 05/06/25 22:54 ONCE ONE Ketorolac Tromethamine 30 mg 05/06/25 22:53 Ketorolac 30mg/Ml Vial IM 05/06/25 22:54 ONCE ONE Lidocaine 1 each 05/06/25 22:53 Lidocaine 5% Transdermal Patch TD 05/06/25 22:54 ONCE ONE Prednisone 60 mg 05/06/25 22:53 Prednisone 20mg Tab PO 05/06/25 22:54 ONCE ONE Medical Decision Narrative: 40-year-old with 8 weeks of right lower extremity discomfort and back pain consistent with sciatica most likely secondary to herniated disc particular given his history. I recommended that he follow-up with his primary care doctor and get an MRI outpatient and follow-up with his spine surgeon given the duration of his symptoms. No red flags from a history of physical standpoint to suggest that the patient has any type of COMMERCIAL ROOFER compression or cauda equina syndrome. No indication for emergency MRI or emergency surgical intervention. Symptomatic medications given in the emergency department and sent to his pharmacy for outpatient management patient is aware of outpatient needs and emergency return precautions. Critical Care Critical Care Time Critical Care Time: No
[2025-05-06 23:03] VITALS: BP 161/114; PULSE 92; RESP 18; TEMP 37; O2SAT 98
[2025-05-06] MEDS: KETOROLAC 30MG/ML VIAL 30 MG IM (23:03)
[2025-05-06] MEDS: CYCLOBENZAPRINE 10MG TABLET 10 MG PO (23:04)
[2025-05-06] MEDS: LIDOCAINE 5% TRANSDERMAL PATCH 1 EACH TD (23:05)
== END 2025-05-06 23:09 | disposition home or self-care (01) ==
PROVIDERS: Emergency Provider Student in an Organized Health Care Education/Training Program; PCP Internal Medicine Adolescent Medicine
DX: M54.31 Sciatica, right side (principal)
CPT/HCPCS: 96372; 99283; J1885

== ENCOUNTER 2025-05-07 12:51 | Outpatient (CLI) | payer OTHER, SELFPAY ==
--- OUTSIDE RECORDS SUMMARY | 2025-05-07 12:57 | XMS_ITS | Clinical Summary ---
Author Organization Healthcare Address [address] [place] [address] Care Team Providers Care Data Operations Manager Name Role Phone David Edgar MD Primary Care Provider [phone] Encounters Date Type Department Care Team Description 04/11/2025 Telephone [facility] Clinic [facility] Room E214 [address] [place] [address] Luma Ponce from Last 3 Months Social [...] of 3 - 19+ 3-dose series) 02/28/2004 [id number] Vaccine (4 - season) 2024 09/22/2021, 12/01/2020, [...] patient's age to complete this topic Insurance [employer] [facility] Care Teams Data Operations Manager Relationship Specialty Start Date End Date David Edgar MD [address] [place] [address] PCP - General 03/05/21
--- OUTSIDE RECORDS SUMMARY | 2025-05-07 12:57 | XMS_ITS | Encounter Summary ---
Author Organization Healthcare Address [address] [place] [address] Care Team Providers Care Blunger Name Role Phone David Edgar MD Primary Care Provider [phone] Encounter Details Date Type Department Care Team (Late st Contact Info) Description 04/11/2025 Telephone [place] [facility] O[facility]facial Pain Clinic [facility] Room E214 [address] [place] [address] Luma Ponce [facility] [place] [phone] Social History Tobacco Use Types Packs/Day Years [...] on filedocumented in this encounter Care Teams Blunger Relationship Specialty Start Date End Date David Edgar MD [address] [place] [address] PCP - General 03/05/21 documented as of this encounter
--- OUTSIDE RECORDS SUMMARY | 2025-05-07 12:57 | XMS_ITS | Encounter Summary ---
Author Organization Healthcare Address [address] [place] [address] Care Team Providers Care Project Intern Name Role Phone David Edgar MD Primary Care Provider [phone] Reason for Referral * Consultation (Routine) - Authorized Specialty Diagnoses / Procedures Referred By Alfredito cope Referred To Contact Dental Agency Trainer / Pain Medicine Diagnoses KIRILL (obstructive sleep apnea) Meg Gleason APRN [address] [address] Phone: tel: fax: [place] [facility] Room E214 [address] [place] [address] Phone: tel: fax: Referral ID Status Reason Start Date Expiration Date Visits Requested Visits Authorized [id number] Authorized Specialty Services Required 11/02/2024 05/04/2026 1 1 Encounter Details Date Type Department Care Team (Late st Contact Info) Description 11/02/2024 Community Orders Community Practice [address] [place] [address] Meg Gleason APRN [address] [address] KIRILL (obstructive sleep apnea) (Primary [...] (pediatric) documented in this encounter Care Teams Project Intern Relationship Specialty Start Date End Date David Edgar MD [address] [place] [address] PCP - General 03/05/21 documented as of this encounter
--- NOTE | 2025-05-07 13:18 | ECG_ITS ---
APPROVED REPORT Exam: Resting ECG HR:93 bpm ECG Measurements Heart Rate 93 AXES MO 143 P 37 QRSd 100 QRS 63 QT 327 T 40 QTc 377 Conclusion SINUS RHYTHM NORMAL ECG UNCONFIRMED REPORT Electronically signed by : David Edgar MD 05/12/2025 08:02:12
[2025-05-07 13:34] LABS: Hematocrit 44.9 % (42.0-52.0); Hemoglobin 15.0 g/dL (14.1-18.0); Immature Granulocytes % 0.4 %; Mean Corpuscular HGB Conc 33.4 g/dL (31.8-35.4); Mean Corpuscular Hemoglobin 29.0 pg (27.0-31.2); Mean Corpuscular Volume 86.8 fl (80-94); Nucleated Red Blood Cells % 0 %; Platelet Count 266 K/mm3 (142-424); Red Blood Count 5.17 M/mm3 (4.60-6.20); Red Cell Distribution Width-SD 41.6 fL; White Blood Count 11.5 K/mm3 (4.8-10.8)
[2025-05-07 13:51] LABS: Anion Gap 19.3 mEq/L (5-15); Blood Urea Nitrogen 19 mg/dl (9-20); Calcium 10.4 mg/dl (8.4-10.2); Carbon Dioxide 24 mmol/L (22.0-30.0); Chloride 101 mmol/L (98-107); Creatinine,Serum 0.90 mg/dl (0.66-1.25); Estimated Glomerular Filt Rate 93 ml/min (>60); GFR (African American) 113 ML/MIN (>60); Glucose 115 mg/dl (74-100); Potassium 4.3 mmoL/L (3.5-5.1); Sodium 140 mmol/L (136-145)
== END 2025-05-07 23:59 | disposition home or self-care (01) ==
LOC: PREOP 12:52
PROVIDERS: PCP Internal Medicine Adolescent Medicine; Visit Provider Surgery
DX: Z01.810 Encounter for preprocedural cardiovascular examination (principal); Z01.812 Encounter for preprocedural laboratory examination; L72.8 Other follicular cysts of the skin and subcutaneous tissue
CPT/HCPCS: 80048; 85025; 93005

== ENCOUNTER 2025-05-15 06:05 | Day surgery (SDC) | payer OTHER, SELFPAY ==
[2025-05-07 15:27] VITALS: BMI 34.8
[2025-05-15] VITALS (10 sets, daily range): BP systolic 122–161; BP diastolic 75–98; PULSE 74–90; RESP 12–18; TEMP 36.1–37.2; O2SAT 95–100; BMI 34.8
[2025-05-15] MEDS: 0.9 % SODIUM CHLORIDE 1000ML 1,000 ML 25 ML IV (06:34)
--- NOTE | 2025-05-15 06:42 | P.PNANES_ITS ---
[facility] Disclaimer: The information contained in this section may have been updated after the patient was seen, as this information can be updated by other users. Medical History Asthma HLD (hyperlipidemia) HTN (hypertension) Foot pain, bilateral Surgical History History of nasal septoplasty History of back surgery History of surgery on lower extremity Family History Other Family history of cancer Family history of diabetes mellitus Family history of heart disease Social History (Updated 05/15/25 @ 06:19 by Sofía Colon RN) Smoking Status: Never smoker second hand exposure: No alcohol intake: never substance use type: denies use current occupational status: employed Travel in the last 8 weeks?: Outside the [facility] household members: spouse and children housing: house Have you lived/traveled outside US in past 30 days?: No Contact w/someone who lives/traveled outside US past 30 days?: No Exposure to someone with infectious disease in past 14 days?: No Do you have a fever (greater than 100.4 F or 38 C)?: No Have you tested positive for COVID-19?: No Exposed to someone with COVID-19 in past 14 days?: No Do you have a sore throat?: No Do you have a cough?: No Do you have any weakness?: No Are you experiencing any nausea/vomitting?: No Do you have any diarrhea?: No Are you experiencing any unusual bleeding?: No Do you have any muscle aches/pain?: No Do you have any abdominal pain?: No Are you experiencing loss of taste or smell?: No [facility] Anesthesia Checklist Patient Identification Patient Identification: Arm Band Structural Data Admitted From: Home Planned Operative Procedure/s: Excision of Scalp Lesions Consent for Planned Operative Procedure(s) Verified: Yes Verified Documents: Surgical Consent and History and Physical NPO Status Verified Time NPO: 00:00 Additional verifications Anesthesia Reactions: No Hx Blood Transfusions: No Blood Transfusion Reaction: No Airway Assessment Mallampati Score:: Class II C-Spine Mobility Assessed: Yes TMJ Mobility Assessed: Yes Dentition: Good Dentition Neurological Assessment Level of Consciousness: Awake, Alert and Appropriate Anesthesia Plan Anesthesia Risk discussed: Yes Anesthesia Plan: Verified ASA Class: II Anesthesia Type: General
[2025-05-15] MEDS: 0.9 % SODIUM CHLORIDE 100 ML 25 ML IV (06:59)
[2025-05-15] MEDS: LIDOCAINE 1% 20ML MDV 20 ML (07:15)
--- NOTE | 2025-05-15 07:31 | P.OP_ITS ---
Date of procedure: 05/15/25 Pre-op Diagnosis:: Left lateral scalp cyst (1.5 cm) Left/anterior scalp cyst (1 cm) Post-op Diagnosis:: Same Procedure performed:: Excision of left lateral scalp cyst (1.5 cm) and left/anterior scalp cyst (1 cm) Surgeon:: Kyree Javier MD [employer] MANAGER:: Bradley Javed Anesthesia: local and LMA Estimated blood loss (mL): 10 Operative findings:: Lesions excised in toto Operative note:: After informed consent was obtained the patient was taken to the operating room and maintained in a supine position. General anesthesia with laryngeal mask airway was achieved. His scalp region was prepped and draped in a sterile fashion. After infiltration with local anesthetic an elliptical incision was made around the central portion of the 1.5 cm left lateral scalp cyst. The cystic lesion was excised in toto utilizing scalpel and electrocautery and then passed off for pathologic evaluation. Dissection was taken into the deep subcutaneous tissue. In a similar manner the 1 cm left/anterior scalp cyst was excised. Skin was reapproximated at both sites with interrupted 4-0 nylon in a mattress fashion. Dressings were applied and the patient was transferred to recovery in stable condition. Condition: stable Disposition: PACU Specimens:: Left lateral scalp cyst Left anterior scalp cyst Complications:: No immediate
--- NOTE | 2025-05-15 07:50 | EXP.ANES.I ---
[facility] Anesthesia Record Part I Anesthesia Record I Intake, IV Amount: 350 Hydration: Adequate Estimated blood loss (mL): 5 Urine output (mL): 0 Blood Products used (#): none Blood Pressure: 158/98 SaO2: 96 Pulse Rate: 90 Airway Patency: Patent Respiratory Rate: 12 Temperature: 98.8 F Patient is:: Drowsy and Stable Stable to PACU at:: 07:45
--- NOTE | 2025-05-15 10:17 | P.PNANES_ITS ---
[facility] Anesthesia Record Part II Anesthesia Record Part II Discharge Time: 08:15 Destination: Surgical Day Care (OP Surgery) PACU nurse assessment reviewed?: Yes Patient Condition:: Good Anesthesia Complications:: None Swallowing reflex intact?: Yes Airway Patency: Patent Cyanosis?: No Blood Pressure: 152/84 SaO2: 97 Respiratory Rate: 16 Pulse Rate: 74 Temperature: 98.9 F Mental Status: Alert & Oriented Pain level:: 0 Nausea and/or vomitting:: None Intake, IV Amount: 0 Hydration: Adequate
== END 2025-05-15 08:46 | disposition home or self-care (01) ==
PROVIDERS: PCP Nurse Practitioner Family; Visit Provider Surgery
PROC: (CPT 11423; principal; 2025-05-15 07:30)
DX: L72.12 Trichodermal cyst (principal); J45.909 Unspecified asthma, uncomplicated; E78.5 Hyperlipidemia, unspecified; I10 Essential (primary) hypertension; M79.672 Pain in left foot; M79.671 Pain in right foot; Z88.2 Allergy status to sulfonamides; Z88.5 Allergy status to narcotic agent; Z88.1 Allergy status to other antibiotic agents; Z79.899 Other long term (current) drug therapy
CPT/HCPCS: 11423; 96374; J0690; J1100; J2003; J2250; J2405; J2704; J3010; J7030

== ENCOUNTER 2025-05-19 14:27 | Outpatient (CLI) | payer OTHER, SELFPAY ==
--- NOTE | 2025-05-19 | MR_ITS ---
FINAL REPORT TECHNIQUE: Multiplanar and multisequence imaging of the lumbar spine was obtained without contrast. CLINICAL HISTORY: lower back pain with right leg pain COMPARISON: None FINDINGS: There is normal alignment of the lumbar vertebral bodies. Vertebral body height is preserved. The spinal cord ends at the level of L1. There is normal signal intensity within the substance of the distal spinal cord. No acute bone marrow edema or pathologic marrow replacement. No acute paraspinal abnormality is identified. L1-2: There is no focal disc herniation, central canal stenosis or neuroforaminal narrowing. L2-3: There is no focal disc herniation, central canal stenosis or neuroforaminal narrowing. L3-4: There is no focal disc herniation, central canal stenosis or neuroforaminal narrowing. L4-5: Postoperative change is present in the right paracentral soft tissues. A mild annular bulge is present without evidence of canal stenosis or neural foraminal narrowing. L5-S1: An annular bulge is present with mild narrowing of the farleft lateral recess. No central canal stenosis is noted. IMPRESSION: Postoperative change is present at the L4-5 level as described, without evidence of canal stenosis or neural foraminal narrowing. Mild degenerative changes are present at the L5-S1 level. Reviewed, Interpreted and Dictated by Etelvina Ivey MD Transcribed by Michelle Cheek Authenticated and [facility]
--- OUTSIDE RECORDS SUMMARY | 2025-05-19 14:32 | XMS_ITS | Clinical Summary ---
Author Organization [facility] Address [address], [address] [place] [address] Care Team Providers Care Airport Maintenance Chief Name Role Phone David Edgar MD Primary Care Provider [phone] Allergies Active Allergy Reactions Criticality Noted Date [...] 05/13/2022 10:33 AM EDT Plan of Treatment Not on file Insurance [address] [place] [id number] [employer] Care Teams Airport Maintenance Chief Relationship Specialty Start Date End Date David Edgar MD [address] [facility] [address] [address] [place] [address] PCP - General Internal Medicine 05/13/22
--- OUTSIDE RECORDS SUMMARY | 2025-05-19 14:32 | XMS_ITS | Clinical Summary ---
Author Organization Healthcare Address [address] [place] [address] Care Team Providers Care Redrawer Name Role Phone David Edgar MD Primary Care Provider [phone] Encounters Date Type Department Care Team Description 04/11/2025 Telephone [facility] Room [address] [place] [id number] Luma Ponce from Last 3 Months Social [...] of 3 - 19+ 3-dose series) 02/28/2004 [id number] Vaccine (4 - season) 2024 09/22/2021, 12/01/2020, [...] patient's age to complete this topic Insurance [employer] [id number] [facility] Care Teams Redrawer Relationship Specialty Start Date End Date David Edgar MD [address] [place] [address] PCP - General 03/05/21
--- OUTSIDE RECORDS SUMMARY | 2025-05-19 14:32 | XMS_ITS | Encounter Summary ---
Author Organization Healthcare Address [address] [place] [address] Care Team Providers Care Hypoid Gear Generator Name Role Phone David Edgar MD Primary Care Provider [phone] Reason for Referral * Consultation (Routine) - Authorized Specialty Diagnoses / Procedures Referred By Alfredito cope Referred To Contact Dental Mesh Cutter / Pain Medicine Diagnoses KIRILL (obstructive sleep apnea) Meg Gleason APRN [address] [address] Phone: tel: fax: [place] [facility] Room [address] [place] [address] Phone: tel: fax: Referral ID Status Reason Start Date Expiration Date Visits Requested Visits Authorized [id number] Authorized Specialty Services Required 11/02/2024 05/04/2026 1 1 Encounter Details Date Type Department Care Team (Late st Contact Info) Description 11/02/2024 Community Orders Community Practice [address] [place] [address] Meg Gleason APRN [address] [address] KIRILL (obstructive sleep apnea) (Primary [...] (pediatric) documented in this encounter Care Teams Hypoid Gear Generator Relationship Specialty Start Date End Date David Edgar MD [address] [place] [address] PCP - General 03/05/21 documented as of this encounter
--- OUTSIDE RECORDS SUMMARY | 2025-05-19 14:32 | XMS_ITS | Encounter Summary ---
Author Organization Healthcare Address [address] [place] [address] Care Team Providers Care Field Appraiser Name Role Phone David Edgar MD Primary Care Provider [phone] Encounter Details Date Type Department Care Team (Late st Contact Info) Description 04/11/2025 Telephone [place] [facility] Room [address] [place] [address] Luma Ponce [facility] [place] [phone] Social History Tobacco Use Types Packs/Day Years [...] on filedocumented in this encounter Care Teams Field Appraiser Relationship Specialty Start Date End Date David Edgar MD [address] [place] [address] PCP - General 03/05/21 documented as of this encounter
--- OUTSIDE RECORDS SUMMARY | 2025-05-19 14:32 | XMS_ITS | Data Portability ---
Author Organization [facility] CORINNA Jeong HERNANDEZ CLOSED Address [address] [place] [address] Care Team Providers Care Preparation Department Supervisor Name Role Phone WES LAINEZ Primary Care Provider [phone] WES LAINEZ Referring Provider Assessment Encounter Date [...] and he elects to proceed with surgery. [email or web address] Not available 08/21/2019 11:47:18 09/09/2019 09/09/2019 Routine [...] Flag Note LastModifiedBy Organization Detail LastModifiedTime 08/26/2008/26/2019 [facility] SEE BELOW Depar tment of Patho logy [facility] Repor t NAME: MAYTE MCKEON [...] 15:24 Page 1 of 1 Not Available [facility] [address], [place], [address], 08/27/2019 15:25:36 08/19/20 19 07/26/2019 MRI, lumba r spine , w/o contr ast No observ ation record ed. [facility] (X-Ray) [address], [place], [address], 08/19/2019 13:56:46 08/26/2008/23/2019 MRI, lumba r spine , w/o contr ast [place] [facility] [address] [facility] [place] [address] Patien t Name: TERRI MENDEZ Patien t [...] right Interp reted By: Anatoly Locke MD [facility] onical ly Signed By: Anatoly Locke MD on 8:09 AM [email or web address] [facility] [address], [address], 08/26/2019 10:00:37 Result Notes Documentation Provider Name and Address Organization Details Recorded Time Mri, Lumbar Spine, W/o Contrast : [address] [address] Patient Name: TERRI SOLORIO Patient : 1985 [...] Anatoly Locke MD F CHACON JR, MD [address] [place] [address], [phone], [facility] 08/26/2019 10:00:37 Procedures Surgical History Date Name Laterality Status Provider Name and Address Organization Details Recorded Time 9 [facility] 09:28:12 open reduction of fracture with internal fixation completed Alaina [facility] 08/21/2019 11:03:48 Ankle arthroscopy/pascual lashawn completed [facility] 08/21/2019 11:04:19 nasal septoplasty completed [facility] 08/21/2019 11:04:40 [place] Teeth Extraction completed [facility] 08/21/2019 11:04:48 Imaging Results None recorded. Procedure Notes None recorded. Medical Equipment None Reported. Allergies Allergen ID Allergen Name Allergen Category Reaction Reaction Severity Criticality Documentation Date Start Date Code Code System Note Provider Name and Address Organization Details Recorded Time 003645 morphine medicatio n Not available Not available Not available 08/21/2019 7052 RxNorm Alaina Hurtado [facility] 9 11:00:56 098123 acetamino phen / hydrocodo ne medicatio n Not available Not available Not available 08/21/2019 83381 2 RxNorm Alaina Hurtado [facility] 9 11:01:05 143668 Product containin g penicilli n (product) medicatio n Not available Not available Not available 08/21/2019 54373 8001 SNOMED Alaina Hurtado [facility] 9 11:01:10 608098 clindamyc in Not available Not available Not available Not available 08/21/2019 2582 RxNorm Alaina Hurtado [facility] 9 11:01:16 283733 Bactroban medicatio n Not available Not available Not available 08/21/2019 88958 1 RxNorm Alaina Hurtado [facility] 9 11:01:22 785579 Substance with sulfonami de structure and antibacte rial mechanism of action (substanc e) medicatio n Not available Not available Not available 08/21/2019 14042 8003 SNOMED Alaina Hurtado [facility] 9 11:01:30 471812 Augmentin medicatio n Not available Not available Not available 08/21/2019 22144 2 RxNorm Alaina Hurtado [facility] 9 11:01:37 Medications Name Sig Start Date Stop Date Status Note LastModified by Organization Details LastModified Time Celebrex 200 mg capsule Take 1 capsule every day by oral route. active Not Available Not Available No t Available Robaxin 500 mg tablet Take 2 tablets 4 times a day by oral route. active Not Available Not Available No t Available [place] 7.5 mg-325 mg tablet Take 1 tablet [...] Updated DateTime 08/21/2019 177.8 cm 33 kg/m2 779600.25 g 120/90 mm[Hg] Alaina Hurtado [facility] 08/21/2019 11:00:47 Date Recorded Body height Body mass index (BMI) Body weight Systolic And Diastolic Provider Name and Address Organization Details Last Updated DateTime 09/25/2019 177.8 cm 33 kg/m2 260054.25 g 124/84 mm[Hg] Alaina Hurtado [facility] 09/25/2019 09:27:45 Social History None recorded. Functional Status None recorded. Mental Status None recorded. Family History Nothing Reported. Medical History Condition Response Hypertension Y Asthma Y High Cholesterol Y Past Encounters Encounter ID Performer Location Encounter Start Date Encounter Closed Date Diagnosis/Indication Diagnosis SNOMED-CT Code Diagnosis ICD10 Code Diagnosis Note [id number] YUSUF CHACON JR, MD [facility] [address] [place] [address] 08/21/2019 10:24:07 08/21/2019 14:34:15 Herniation of lumbar intervertebral disc with sciatica 0169767517 07335 M51.16 [id number] YUSUF CHACON JR, MD SURGERY SCHEDULE [address] [place] [address] 08/26/2019 08:11:25 08/26/2019 08:12:54 [id number] YUSUF CHACON JR, MD [facility] [address] [place] [address] 09/09/2019 09:50:40 09/09/2019 10:10:20 [id number] HUMAIRA JARVIS PA-C [facility] [address] [place] [address] 09/25/2019 09:17:31 09/25/2019 11:27:26 Prolapsed lumbar intervertebral disc 152996870 M51.26 Health Concerns Section Related Observation LastModified by Organization Detai ls LastModified Time None Recorded Concern Status LastModified by Organization Details LastModified Time None Recorded Advance Directives Directive None Recorded Payers Insurance Date Sequence Insurance Name Policy Number Policy Mark Covered Member ID Mark Member ID Guarantor Name 04/12/2021 1 [place] [id number] 1 Terri Solorio Jr [id number] Terri Solorio 01/28/2022 PAYMENT PLAN Terri Solorio
== END 2025-05-19 23:59 | disposition home or self-care (01) ==
LOC: RAD 14:27
PROVIDERS: Visit Provider Nurse Practitioner Family
DX: M54.16 Radiculopathy, lumbar region (principal); M47.817 Spondylosis without myelopathy or radiculopathy, lumbosacral region; Z98.890 Other specified postprocedural states
CPT/HCPCS: 72148